=== PATIENT | female | born 1950 | race African-American/Black ===

== ENCOUNTER 2017-09-07 13:25 | Observation (INO) | payer MEDICARE, OTHER ==
[2017-09-07 14:25] LABS: #Basophils 0.1 thou/uL (0.0-0.2); #Eosinphils 0.2 thou/uL (0.0-0.7); #Lymphocytes 1.6 thou/uL (1.20-3.40); #Monocytes 0.3 thou/uL (0.11-0.59); #Neutrophils 2.8 thou/uL (1.40-6.50); %Basophils 1.2 % (0.0-1.0); %Eosinophils 4.3 % (0.0-10.0); %Lymphocytes 32.4 % (21.0-51.0); %Monocytes 6.5 % (0.0-10.0); Hematocrit 43.3 % (36.0-47.0); Red Blood Cell (RBC) Count 4.44 mill/uL (4.20-5.40)
[2017-09-07 14:45] LABS: Digoxin Less than 0.15 ng/mL (0.8-2.0)
[2017-09-07 14:46] LABS: ALT (SGPT) 21 U/L (8-55); AST (SGOT) 25 U/L (5-34); Alkaline Phosphatase 99 U/L (40-150); Anion Gap 11 mmol/L (10-20); BUN (Urea Nitrogen) 10 mg/dL (9.8-20.1); Bilirubin, Total 0.2 mg/dL (0.2-1.2); CK (CPK) 129 U/L (29-168); Calc. Creatinine Clearance 0 mL/min (70-130); Calcium 9.8 mg/dL (7.8-10.44); Carbon Dioxide 25 mmol/L (23-31); Chloride 107 mmol/L (98-107); Estimated GFR-MDRD 82; Lipase 25 U/L (8-78)
[2017-09-07] MEDS ORDERED: Acetaminophen 500 MG TAB ONE (14:48)
[2017-09-07] MEDS ORDERED: Nitroglycerin 2% Ointment 1 INCH/1 GM Packet ONE (14:48)
--- NOTE | 2017-09-07 14:51 | ULT ---
LEFT LOWER EXTREMITY VENOUS ULTRASOUND: COMPARISON: None. HISTORY: Left lower extremity pain and edema. TECHNIQUE: Multiplanar, gomez scale, and color Doppler images were obtained in a left lower extremity venous ultr asound. Spectral analysis of the Doppler waveforms was performed. FINDINGS: The left common femoral vein, profunda femoral vein, superficial femoral vein, and popliteal vein are normal in appearance without visible thrombus. These vessels demonstrate normal compression, flow, and augmentation. The posterior tibial vein and greater saphenous vein are also patent. IMPRESSION: No evidence of deep vein thrombosis. POS: [facility]
[2017-09-07 14:56] LABS: Troponin I Less than 0.010 ng/mL (< 0.028)
--- NOTE | 2017-09-07 15:19 | RAD ---
SINGLE VIEW OF THE CHEST: Comparison: 12-25-16 History: Chest pain radiating to the left arm. FINDINGS: Single view of the chest shows an enlarged but stable cardiomediastinal silhouette. The patient is st atus post sternotomy. There is no evidence of consolidation, mass, or pleural effusion. IMPRESSION: Cardiomegaly without evidence of acute cardiopulmonary disease. POS: [facility]
--- NOTE | 2017-09-07 16:36 | HP ---
PRIMARY CARE PHYSICIAN: Louie Lauren M.D. CHIEF COMPLAINT: Chest pain, shortness of breath. HISTORY OF PRESENT ILLNESS: Ms. Page is a very pleasant 67-year-old female with past medical histor y of diabetes, hypertension, dyslipidemia, coronary artery disease status post CABG in 2014 and stent ing in 08/2016, who presented to the emergency room with the above mentioned complaints. History is mainly obtained by the patient herself and electronic medical records have been reviewed. She was la admitted to our facility in December of this year after she sustained a left-sided weakness, CVA and received TPA. Her cardiac stenting was done in 08/2016 with a drug-eluting stent placement to the SV G to LAD graft. She was discharged on Plavix. Today, she came to the hospital with above-mentioned complaint. 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 She was walking to the lunch room when she started to have sudden onset of very sharp, severe c hest pain located in the substernal central area. She has been having some on and off mild flares of pain for the last few months, but this was very severe. She rates it as a 10/10 in intensity. It d id go down her left arm. It was associated with nausea, dizziness, and shortness of breath. It did improve with sitting down. The pain persisted and she was brought into the emergency room and receiv ed nitroglycerin. Initial workup was unremarkable with a normal EKG and normal cardiac enzymes. She received aspirin a nd nitroglycerin paste in the ER with improvement in her symptoms. She was otherwise hemodynamically stable upon presentation. She did also give history of some swelling and pain in her left leg only. She has noted this for the last week or so. She underwent a lower extremity Doppler ultrasound which was negative for DVT in t he left leg. She is now being admitted for further workup for chest pain with known history of coronary artery dis ease. PAST MEDICAL HISTORY: 1. Coronary artery disease status post CABG in 2013 and stenting in 2015. 2. CVA in 12/2016, status post TPA. 3. Diabetes mellitus, type 2, controlled. 4. Hyperlipidemia. 5. History of thyroid nodules. 6. Hypertension. 7. Dyslipidemia. PAST SURGICAL HISTORY: 1. CABG in 2013 and stenting in 08/2016. 2. Appendectomy. 3. Hysterectomy. PAST PSYCHIATRIC HISTORY: No anxiety or depression. CODE STATUS: Full code. SOCIAL HISTORY: She teaches in a school. No history of drug, tobacco or alcohol abuse. FAMILY HISTORY: Massive heart attack in her mother at the age of 46. Hypertension in multiple famil y members. ALLERGIES: No known medication allergies. CURRENT MEDICATIONS: The patient does not remember any of her medications today. She does take an a spirin on a daily basis, but does not remember any of the medication. She however reports compliance . PHYSICAL EXAMINATION: VITAL SIGNS: Upon presentation, blood pressure 143/87, pulse of 83, respirations 16, temperature 98, saturating 97% on room air. GENERAL: No acute distress, awake, alert, oriented x3, very pleasant. HEENT: Mucous membrane is moist and pink. No oropharyngeal exudate or erythema. Head is normocepha lic, atraumatic. Pupils equal, reactive to light and accommodation. NECK: Supple without any lymphadenopathy, JVD or bruit. CHEST: Clear to auscultation without any wheezing, rales or rhonchi. CARDIOVASCULAR: Rhythm is regular without any murmur, rubs or gallops. ABDOMEN: Soft, nontender, and nondistended with positive bowel sounds. EXTREMITIES: Free of any cyanosis, clubbing, or edema. NEUROLOGIC: Nonfocal. SKIN: Free of any rashes or bruises. Feels warm and dry to touch. PSYCHIATRIC: Normal affect. LABORATORY DATA: A 12-lead EKG by my review shows normal sinus rhythm at [address] se gments are normal. She does have some inverted T-waves and flattened T waves in the inferior leads. Chest x-ray by my review has no infiltrate or pneumothorax or pulmonary edema. She does have eviden ce of cardiomegaly. Lower extremity Doppler Ultrasound is negative for any DVT. CBC is unremarkable. Serum chemistry unremarkable. Cardiac enzymes normal. BNP 21. Digoxin level less than 0.15. IMPRESSION AND PLAN: 1. Chest pain. The patient has history of known coronary artery disease. At this time, we will res tart her home medications once confined and obtain a nuclear medicine stress test. At this time I will go ahead and obtain a nuclear medicine stress test and we will notify Dr. Saini of the patient's presentation. We will continue to trend serial cardiac enzymes and use sublingual n itroglycerin as needed. Continue with aspirin and recheck lipid panel. She will be admitted on tele metry unit. She is currently hemodynamically stable. Continue with her proton pump inhibition that she takes as an outpatient to rule out gastric causes of her chest pain. Possibility of pulmonary em bolism is clinically low. 2. Hypertension. The patient is somewhat hypertensive in the emergency room. At this time, I will add p.r.n. antihypertensive and reconcile the home medications and restart as soon as possible. 3. Diabetes mellitus type 2. We will add insulin sliding scale and monitor Accu-Cheks closely. 4. Dyslipidemia. Restart home medications once confirmed and check lipid panel. 5. Recent cerebrovascular accident. The patient was discharged on aspirin and Plavix and we most justin watson will be able to restart once confirmed through her pharmacy. 6. Group status: Full code. Discussed with the patient. 7. Deep venous thrombosis and gastrointestinal prophylaxis. DISPOSITION: The patient is coming in for chest pain with known history of coronary artery disease. She will be admitted for further evaluation under observation status. Further management will depen d upon her clinical course.
[2017-09-07] MEDS ORDERED: cloNIDine 0.1 MG TAB PO PRN (16:58)
[2017-09-07] MEDS ORDERED: Lorazepam 1 MG TAB PO PRN (16:58)
[2017-09-07] MEDS ORDERED: Diabetic Tussin 200 MG/10 ML UDCUP PO PRN (16:58)
[2017-09-07] MEDS ORDERED: Senokot 8.6 MG TAB PO PRN (16:58)
[2017-09-07] MEDS ORDERED: Loratadine 10 MG TAB PO PRN (16:58)
[2017-09-07] MEDS ORDERED: Ondansetron HCl/PF 4 MG/2 ML Vial IVP PRN (16:58)
[2017-09-07] MEDS ORDERED: HumaLOG 300 UNITS/3 ML VIAL SC PRN ×2 (16:58)
[2017-09-07] MEDS ORDERED: Mag-Al 1200 mg/1200 mg/30 ML UDCUP PO PRN (16:58)
[2017-09-07] MEDS ORDERED: traMADol HCl 50 MG TAB PO PRN (16:58)
[2017-09-07] MEDS ORDERED: Bisacodyl 5 MG TAB PO PRN (16:58)
[2017-09-07] MEDS ORDERED: Acetaminophen 325 MG TAB PO PRN (16:58)
[2017-09-07] MEDS ORDERED: Benzonatate 100 MG CAP PO PRN (16:58)
[2017-09-07] MEDS ORDERED: Dextrose 5% in Water 1,000 ML IV PRN (16:58)
[2017-09-07] MEDS ORDERED: Nitroglycerin 0.4 MG TAB (25 Tab Bottle) SL PRN (16:58)
[2017-09-07] MEDS ORDERED: Dextrose 50% Abboject 50 ML SYRINGE SLOW IVP PRN (16:58)
[2017-09-07] MEDS ORDERED: Calcium Carbonate 500 MG ChewTAB PO PRN (16:58)
[2017-09-07] MEDS ORDERED: hydrALAZINE 20 MG/ML VIAL SLOW IVP PRN (16:58)
[2017-09-07 17:24] VITALS: BMI 35.6
[2017-09-07 18:27] LABS: Troponin I Less than 0.010 ng/mL (< 0.028)
[2017-09-07] MEDS: Famotidine 20 MG TAB PO SCH (20:09)
[2017-09-07] MEDS ORDERED: Communication Order-Pharmacy FS SCH (20:30)
[2017-09-07] MEDS ORDERED: Diazepam 5 MG TAB PO SCH ×2 (20:30→21:30)
[2017-09-07 21:03] LABS: Troponin I 0.014 ng/mL (< 0.028)
--- NOTE | 2017-09-07 22:58 | CON ---
DATE OF CONSULTATION: 09/07/2017 REASON FOR CONSULTATION: Unstable angina. HISTORY OF PRESENT ILLNESS: Ms. Rothman is a pleasant 67-year-old woman. She has a history of coron jaz artery disease and coronary bypass grafting done in 2013. The patient presented with unstable an regina in 08/2016 and was found to have a severe stenosis in the LAD graft. The internal mammary arter y graft was a free graft which was atretic, which were very small ramus branch. There was a distal c ircumflex, which did not have a graft. The patient underwent successful stent implantation in the LA D. The patient has noted increasing amounts of shortness of breath for the last few months and had recur rent chest pain at rest, prompting this admission she came to the emergency room and has been admitte d for evaluation. She has EKG changes in the anterior leads with T-wave inversions in anterior leads . MEDICATIONS AT HOME: 1. Aspirin. 2. Clopidogrel. 3. Coreg 3.125 mg twice daily. 4. Amlodipine 5 mg a day. 5. Atorvastatin. 6. Dexilant. ALLERGIES: None known. REVIEW OF SYSTEMS: Constitutional: No significant weight gain or loss. Vision: No changes. Heari ng: No changes. Pulmonary: No cough or wheezing. Gastrointestinal: No nausea, vomiting, diarrhea . Skin: No rashes. Neurologic: No unilateral weakness or numbness. Psychiatric: No unusual depr ession or anxiety. PHYSICAL EXAMINATION: GENERAL: This is a pleasant elderly woman in no distress. VITAL SIGNS: Blood pressure 115/67, pulse 88, regular. HEENT: Eyes, sclerae nonicteric. Mouth; mucous membranes moist. NECK: Supple, no lymphadenopathy. LUNGS: Clear. CARDIAC: Normal S1, normal S2. There is no murmur, rub or gallop. ABDOMEN: Soft, nontender. EXTREMITIES: No clubbing, no cyanosis. There is no edema. PSYCHIATRIC: Mood and affect normal. NEUROLOGIC: Grossly normal. SKIN: Warm and dry. PERTINENT LABORATORY AND X-RAY FINDINGS: Troponin levels are negative. The EKG; however, does show T-wave inversion in the anterior leads V2, V3, V4, and V5. ASSESSMENT: 1. Unstable angina. 2. Previous bypass surgery. 3. Previous stent implantation in the LAD, saphenous vein graft. PLAN: Proceed to cardiac catheterization tomorrow. I discussed risks of stroke, heart attack, iodin e allergy, loss of blood supply to the leg or kidney, stent thrombosis, stent restenosis. She unders tands and wishes to proceed.
[2017-09-08 05:19] LABS: #Eosinphils 0.1 thou/uL (0.0-0.7); #Lymphocytes 1.9 thou/uL (1.20-3.40); #Monocytes 0.5 thou/uL (0.11-0.59); #Neutrophils 1.8 thou/uL (1.40-6.50); %Basophils 0.6 % (0.0-1.0); %Eosinophils 3.3 % (0.0-10.0); %Lymphocytes 43.9 % (21.0-51.0); %Monocytes 10.8 % (0.0-10.0); Hematocrit 42.1 % (36.0-47.0); Mean Platelet Volume 9.2 fL (7.4-10.4); Red Blood Cell (RBC) Count 4.32 mill/uL (4.20-5.40); White Blood Cell (WBC) Count 4.3 thou/uL (4.8-10.8)
[2017-09-08 05:27] LABS: Anion Gap 11 mmol/L (10-20); BUN (Urea Nitrogen) 9 mg/dL (9.8-20.1); Calc. Creatinine Clearance 88 mL/min (70-130); Calcium 9.3 mg/dL (7.8-10.44); Carbon Dioxide 26 mmol/L (23-31); Chloride 107 mmol/L (98-107); Estimated GFR-MDRD Greater than 90
[2017-09-08] MEDS ORDERED: Sodium Chloride 0.9% 1,000 ML IV SCH (06:00)
[2017-09-08] MEDS ORDERED: Heparin 1000 UNIT/NS 500ML(OR) 500 ML ONE ×2 (06:35→08:13)
[2017-09-08] MEDS: Famotidine 20 MG TAB PO SCH ×2 (06:39→20:10)
[2017-09-08] MEDS: Carvedilol 3.125 MG TAB PO SCH ×2 (06:40→20:10)
[2017-09-08] MEDS: Sodium Chloride 0.9% 1,000 ML IV SCH ×2 (06:40→17:28)
[2017-09-08] MEDS: Aspirin 325 mg Enteric Coated Tablet PO SCH (06:40)
[2017-09-08] MEDS ORDERED: Midazolam HCl 2 mg/2 ml Vial ONE (07:30)
[2017-09-08] MEDS ORDERED: Fentanyl 100 MCG/2 ML VIAL ONE ×3 (07:30→13:40)
[2017-09-08] MEDS ORDERED: Heparin 10,000 UNITS/1 ML VIAL ONE (07:47)
[2017-09-08] MEDS ORDERED: Nitroglycerin 100MG/250ML BOT 250 ML ONE (08:23)
[2017-09-08] MEDS ORDERED: Adenosine 6 MG/2 ML VIAL ONE (08:28)
[2017-09-08] MEDS ORDERED: Clopidogrel Bisulfate 75 MG TAB PO SCH (09:00)
[2017-09-08] MEDS ORDERED: Enoxaparin Sodium 40 MG/0.4 ML SYRINGE SC SCH (09:00)
[2017-09-08] MEDS ORDERED: Nitroglycerin 0.4 MG TAB 1 EACH SL PRN (09:05)
[2017-09-08] MEDS ORDERED: Clopidogrel Bisulfate 300 MG TAB PO SCH (09:15)
[2017-09-08] MEDS ORDERED: Clopidogrel Bisulfate 300 MG TAB ONE (09:29)
[2017-09-08] MEDS ORDERED: Iopamidol 370 76% 100 ML VIAL ONE (14:50)
[2017-09-08] MEDS ORDERED: Iopamidol 370 76% 50 ML VIAL FS ONE (14:50)
--- NOTE | 2017-09-08 14:58 | PDOC.PN ---
- Subjective Encounter Start Date: 09/08/17 Encounter Start Time: 14:56 Patient seen and examined. No new complaints. No overnight events. feels better after the stents. - Objective MAR Reviewed: Yes Vital Signs & Weight: Vital Signs (12 hours) Temp Pulse Resp BP Pulse Ox 09/08/17 07:58 97.5 F L 62 16 09/08/17 04:00 97.5 F L 62 16 133/84 96 Weight Weight 176 lb 3.2 oz I&O: 09/07/17 09/08/17 09/09/17 06:59 06:59 06:59 Intake Total 1120 Output Total 1600 Balance -480 Result Diagrams: 09/08/17 04:00 09/08/17 04:00 Additional Labs: Accuchecks 09/07/17 09/07/17 20:34 18:55 POC Glucose 168 H 141 H Phys Exam - Physical Examination Constitutional: NAD HEENT: sclera anicteric Neck: supple Respiratory: no wheezing, no rales Cardiovascular: RRR Gastrointestinal: soft Musculoskeletal: no edema Neurological: non-focal, moves all 4 limbs Psychiatric: normal affect, A&O x 3 Skin: no rash Dx/Plan (1) CAD (coronary artery disease) Code(s): I25.10 - ATHSCL HEART DISEASE OF [place] CORONARY ARTERY W/O ANG PCTRS Status: Acute (2) Diabetes Code(s): E11.9 - TYPE 2 DIABETES MELLITUS WITHOUT COMPLICATIONS Status: Acute (3) HLD (hyperlipidemia) Code(s): E78.5 - HYPERLIPIDEMIA, UNSPECIFIED Status: Acute - Plan cont current plan of care, plan discussed w/ family * . CAD with in-stent restenosis s/p JUVENCIO. AM labs. f/u with cardiology for DC plans.
--- NOTE | 2017-09-08 17:19 | PRG ---
DATE OF SERVICE: 09/08/2017 Ms. Rothman is doing well. She underwent cardiac catheterization today. She was found to have sever e in-stent restenosis at the saphenous vein graft to the LAD stent. She underwent successful stent i mplantation, a 4.0 x 16 mm stent was placed. The patient did have a transient reduced flow, responde d to adenosine. There is a critical lesion prior to the dilatation, may have been some thrombus in t his area. The patient is doing well now and the plan is to go home tomorrow on aspirin and Plavix. All the oth er medicines on as well.
[2017-09-09 05:47] LABS: #Eosinphils 0.2 thou/uL (0.0-0.7); #Lymphocytes 1.2 thou/uL (1.20-3.40); #Monocytes 0.4 thou/uL (0.11-0.59); #Neutrophils 2.4 thou/uL (1.40-6.50); %Basophils 0.9 % (0.0-1.0); %Eosinophils 4.8 % (0.0-10.0); %Lymphocytes 28.3 % (21.0-51.0); %Monocytes 9.7 % (0.0-10.0); Hematocrit 45.3 % (36.0-47.0); Mean Platelet Volume 9.2 fL (7.4-10.4); Red Blood Cell (RBC) Count 4.62 mill/uL (4.20-5.40); White Blood Cell (WBC) Count 4.2 thou/uL (4.8-10.8)
[2017-09-09 06:07] LABS: ALT (SGPT) 17 U/L (8-55); AST (SGOT) 23 U/L (5-34); Alkaline Phosphatase 96 U/L (40-150); Anion Gap 9 mmol/L (10-20); BUN (Urea Nitrogen) 8 mg/dL (9.8-20.1); Bilirubin, Total 0.4 mg/dL (0.2-1.2); Calc. Creatinine Clearance 89 mL/min (70-130); Calcium 9.8 mg/dL (7.8-10.44); Carbon Dioxide 29 mmol/L (23-31); Chloride 106 mmol/L (98-107); Estimated GFR-MDRD Greater than 90; Protein, Total 6.8 g/dL (6.0-8.3)
[2017-09-09] MEDS: Aspirin 325 mg Enteric Coated Tablet PO SCH (08:52)
[2017-09-09] MEDS: Famotidine 20 MG TAB PO SCH (08:52)
[2017-09-09] MEDS: Carvedilol 3.125 MG TAB PO SCH (08:52)
[2017-09-09] MEDS ORDERED: Lisinopril 20 MG TAB PO SCH (09:00)
[2017-09-09] MEDS ORDERED: Clopidogrel Bisulfate 75 MG TAB PO SCH (09:00)
[2017-09-09] MEDS ORDERED: Amlodipine 5 MG TAB PO SCH (09:00)
--- NOTE | 2017-09-09 11:42 | PDOC.PN ---
- Subjective Encounter Start Date: 09/09/17 Encounter Start Time: 11:41 Ms. Rothman was seen today in follow-up of unstable angina. She says she is feeling fine today. She notes a little shortness of breath. She denies chest pain. - Objective MAR Reviewed: Yes Vital Signs & Weight: Vital Signs (12 hours) Temp Pulse Resp BP BP Pulse Ox 09/09/17 08:00 98.4 F 71 16 09/09/17 07:10 98.4 F 71 16 131/87 96 09/09/17 04:11 97.8 F 65 16 133/81 96 09/09/17 00:00 98.1 F 76 16 128/82 97 Weight Weight 176 lb 3.2 oz I&O: 09/08/17 09/09/17 09/10/17 06:59 06:59 06:59 Intake Total 1120 2330 Output Total 1600 1000 Balance -480 1330 Result Diagrams: 09/09/17 05:11 09/09/17 05:11 Additional Labs: Accuchecks 09/09/17 09/09/17 09/08/17 11:19 05:37 20:11 POC Glucose 98 125 H 89 09/08/17 17:04 POC Glucose 140 H Phys Exam - Physical Examination HEENT: PERRLA Respiratory: no wheezing, no rales, no rhonchi, clear to auscultation bilateral Cardiovascular: RRR, no significant murmur Gastrointestinal: soft, non-tender, positive bowel sounds Musculoskeletal: no edema Dx/Plan (1) Unstable angina Status: Acute (2) CAD (coronary artery disease) Code(s): I25.10 - ATHSCL HEART DISEASE OF [place] CORONARY ARTERY W/O ANG PCTRS Status: Acute (3) Diabetes Code(s): E11.9 - TYPE 2 DIABETES MELLITUS WITHOUT COMPLICATIONS Status: Chronic (4) HLD (hyperlipidemia) Code(s): E78.5 - HYPERLIPIDEMIA, UNSPECIFIED Status: Chronic (5) Hypertension Code(s): I10 - ESSENTIAL (PRIMARY) HYPERTENSION Status: Chronic - Plan * Unstable Angina- she was found to have an In-stent stenosis of theSavenous vein graft to the LAD * She has had another STENT placed * HTN- blood pressure is stable * Can discharge home today.
[2017-09-09 12:13] VITALS: BP 144/86; TEMP 98.8
--- NOTE | 2017-09-09 16:12 | DIS ---
DATE OF ADMISSION: 09/07/2017 DATE OF DISCHARGE: 09/09/2017 PRIMARY CARE PHYSICIAN: Louie Lauren M.D. DISCHARGE DISPOSITION: Home. PRIMARY DISCHARGE DIAGNOSES: 1. Unstable angina. 2. Coronary artery disease. 3. In-stent restenosis. 4. Hypertension. 5. Diabetes mellitus. DISCHARGE MEDICATIONS: Include aspirin 325 mg daily, Plavix 75 mg daily, amlodipine 5 mg daily, albu terol inhaler 2 puffs q.6 as needed, calcium carbonate plus vitamin D 1 tablet daily, carvedilol 3.12 5 mg twice daily, Flexeril 10 mg t.i.d. as needed, Dexilant 60 mg daily, lisinopril 40 mg daily, Metf ormin extended release 500 mg daily, Zoloft 50 mg daily. CODE STATUS: Full code. ALLERGIES: No known drug allergies. PROCEDURES DONE DURING ADMISSION: The patient had a cardiac catheterization in which it was noted th at the patient had a severe in-stent restenosis of the saphenous vein graft to the LAD. The patient had successful PCI of the LAD and a stent deployed. The patient had an uneventful post-procedure cou rse and at the time of discharge, she was symptom free and was able to be discharged home with close outpatient followup.
--- NOTE | 2017-09-23 13:28 | EKG ---
Test Reason : POST STENT Blood Pressure : / mmHG Vent. Rate : 067 BPM Atrial Rate : 067 BPM P-R Int : 180 ms QRS Dur : 080 ms QT Int : 396 ms P-R-T Axes : 068 022 059 degrees QTc Int : 418 ms Normal sinus rhythm T wave abnormality, consider anterior ischemia Abnormal ECG When compared with ECG of 07-SEP-2017 13:39, (Unconfirmed) No significant change was found Confirmed by LUCI BANDA MD ([id number]) on 09/23/2017 1:28:05 PM Referred By: HARI Confirmed By:LUCI BANDA MD
--- NOTE | 2017-09-23 13:32 | EKG ---
Test Reason : ROUTINE Blood Pressure : / mmHG Vent. Rate : 066 BPM Atrial Rate : 066 BPM P-R Int : 184 ms QRS Dur : 076 ms QT Int : 402 ms P-R-T Axes : 018 -04 026 degrees QTc Int : 421 ms Normal sinus rhythm T wave abnormality, consider anterior ischemia Abnormal ECG When compared with ECG of 08-SEP-2017 09:52, (Unconfirmed) No significant change was found Confirmed by LUCI BANDA MD ([id number]) on 09/23/2017 1:32:36 PM Referred By: Confirmed By:LUCI BANDA MD
== END 2017-09-09 12:38 | disposition home or self-care (01) ==
LOC: ERS 13:25 → 2SW 15:15
PROVIDERS: ADMIT Internal Medicine; ATTEND Internal Medicine
DX: I25.110 Atherosclerotic heart disease of native coronary artery with unstable angina pectoris (principal); I10 Essential (primary) hypertension; E11.9 Type 2 diabetes mellitus without complications; Z79.899 Other long term (current) drug therapy; Z95.1 Presence of aortocoronary bypass graft; Z95.5 Presence of coronary angioplasty implant and graft; Z98.890 Other specified postprocedural states
CPT/HCPCS: 71010; 76942; 80048; 80053 ×2; 80162; 82550; 82553; 82962 ×3; 83690; 83880; 84484 ×2; 85025 ×3; 85347 ×3; 93005 ×3; 93455; 93971; 94760; 99285; C1769 ×2; C1874; C1887; C9600; G0378; 36415; 36416; 92928; 93010; 99152; 99153; A4216; J0153; J1644; J2250; J3010

== ENCOUNTER 2017-09-25 18:59 | Observation (INO) | payer MEDICARE ==
[2017-09-25] MEDS ORDERED: Nitroglycerin 2% Ointment 1 INCH/1 GM Packet ONE (20:04)
[2017-09-25] MEDS ORDERED: Acetaminophen 325 MG TAB ONE (20:04)
[2017-09-25 20:11] LABS: #Eosinphils 0.2 thou/uL (0.0-0.7); #Lymphocytes 1.9 thou/uL (1.20-3.40); #Monocytes 0.6 thou/uL (0.11-0.59); %Basophils 0.7 % (0.0-1.0); %Monocytes 10.5 % (0.0-10.0); %Neutrophils 52.9 % (42.0-75.0); Hemoglobin 13.6 g/dL (12.0-16.0); Mean Corpuscular HGB CONC 32.5 g/dL (32.0-36.0); Mean Corpuscular Hemoglobin 31.6 pg (27.0-31.0); Mean Corpuscular Volume 97.1 fl (81.0-99.0); Mean Platelet Volume 9.5 fL (7.4-10.4); Platelet Count 265 thou/uL (130-400); RBC Distribution Width 12.8 % (11.5-14.5); Red Blood Cell (RBC) Count 4.31 mill/uL (4.20-5.40); White Blood Cell (WBC) Count 5.7 thou/uL (4.8-10.8)
[2017-09-25 20:28] LABS: ALT (SGPT) 28 U/L (8-55); AST (SGOT) 34 U/L (5-34); Alkaline Phosphatase 107 U/L (40-150); Anion Gap 16 mmol/L (10-20); BUN (Urea Nitrogen) 10 mg/dL (9.8-20.1); Bilirubin, Total 0.3 mg/dL (0.2-1.2); CK (CPK) 109 U/L (29-168); Calc. Creatinine Clearance 0 mL/min (70-130); Carbon Dioxide 23 mmol/L (23-31); Chloride 108 mmol/L (98-107); Estimated GFR-MDRD 85; Glucose 89 mg/dL (80-115); Potassium 4.5 mmol/L (3.5-5.1); Sodium 142 mmol/L (136-145)
[2017-09-25 20:32] LABS: CKMB 2.8 ng/mL (0-6.6); Troponin I Less than 0.010 ng/mL (< 0.028)
--- NOTE | 2017-09-25 20:34 | RAD ---
AP CHEST: Indication: Chest pain. IMPRESSION: No acute cardiopulmonary abnormality. This examination is not appreciably changes from comparison of 08-28-17. Heart size remains mildly prominent but stable. POS: [facility]
--- NOTE | 2017-09-25 21:08 | ULT ---
DOPPLER VENOUS ULTRASOUND OF THE LEFT LOWER EXTREMITY: Indication: Left lower extremity pain and edema. TECHNIQUE: Gupta scale, color Doppler, and vascular duplex with spectral analysis was performed of the deep venou s structures of the left lower extremity. The common femoral vein, superficial femoral vein, poplitea l vein, posterior tibial vein, proximal greater saphenous, and proximal profunda veins were assessed. FINDINGS: There is normal compression, flow, and augmentation seen within the deep venous systems of the left l ower extremity. IMPRESSION: No evidence of DVT within the left lower extremity. POS: [facility]
[2017-09-25] MEDS ORDERED: Dextrose 5% in Water 1,000 ML IV PRN ×2 (22:17→22:19)
[2017-09-25] MEDS ORDERED: Ondansetron ODT 4 MG TAB PO PRN (22:17)
[2017-09-25] MEDS ORDERED: HYDROcodone/Acetaminophen 5/325 mg Tablet PO PRN (22:17)
[2017-09-25] MEDS ORDERED: Dextrose 50% Abboject 50 ML SYRINGE SLOW IVP PRN ×2 (22:17→22:19)
[2017-09-25] MEDS ORDERED: Acetaminophen 325 MG TAB PO PRN (22:17)
[2017-09-25] MEDS ORDERED: Ondansetron HCl/PF 4 MG/2 ML Vial IVP PRN (22:17)
[2017-09-25] MEDS ORDERED: HumaLOG 300 UNITS/3 ML VIAL SC PRN (22:19)
[2017-09-25] MEDS ORDERED: Cyclobenzaprine 10 MG TAB PO PRN (22:20)
[2017-09-25] MEDS ORDERED: PROVENTIL INHALER 6.7 G (200 INHALATIONS) INH PRN (22:20)
[2017-09-25] MEDS ORDERED: Enoxaparin Sodium 100 MG/ML SYRINGE SC SCH (22:30)
[2017-09-25] MEDS ORDERED: Sodium Chloride 0.9% 1,000 ML IV SCH (22:30)
[2017-09-25] MEDS ORDERED: Carvedilol 3.125 MG TAB PO SCH (22:30)
[2017-09-25] MEDS ORDERED: Enoxaparin Sodium 80 MG/0.8 ML SYRINGE SC SCH (22:30)
[2017-09-25 23:51] LABS: CKMB 2.8 ng/mL (0-6.6); Troponin I Less than 0.010 ng/mL (< 0.028)
[2017-09-25 23:53] LABS: Troponin I Less than 0.010 ng/mL (< 0.028)
[2017-09-26] MEDS: HYDROcodone/Acetaminophen 10/325 mg Tablet PO PRN ×2 (00:36→09:51)
--- NOTE | 2017-09-26 00:57 | HP ---
DATE OF ADMISSION: 09/25/2017 TIME OF SERVICE: 2145 hours. PRIMARY CARE PHYSICIAN: Louie Lauren M.D. PRIMARY SURGICAL INSTRUMENT MAKER: Dr. Saini. CHIEF COMPLAINT: Chest pain. HISTORY OF PRESENT ILLNESS: Ms. Rothman is a 67-year-old -Turkish female known to us from re cent stay here. She was here from 09/07/2017 to 09/09/2017, when she presented with chest pain. She describes the pain then and now to be exactly the same as a sharp stabbing pain into the left side o f her sternum. Not related to activity. That radiated down her left arm and down to her left leg. She was admitted here during that time and Cardiology was consulted. Dr. Saini is a licensed architect an d saw her. He took her to the cardiac cath lab manager and found that she had her saphenous vein to LAD graft stent that was placed in 08/2016 to be occluded and had to have a new stent placed. She felt better after that went home. She did well until today, where she had recurrence of her chest pain just like it was last time. Pre sented to the emergency department. Workup here has been negative. We were called from admission for observation and further workup and evaluation. She does complain of some intermittent dizziness. She has had no fevers or chills. She has nausea w ithout vomiting during the chest pain episode. No diarrhea or constipation. She had no diaphoresis or sweats. She does have a headache in the posterior aspect of her neck going up to the occiput. This started b efore the chest pain. She has a frontal headache now with the nitroglycerin, but the posterior heada royal is still continues. No other current complaints. PAST MEDICAL HISTORY: 1. Coronary artery disease. 2. Hypertension. 3. Hyperlipidemia. 4. Cerebrovascular disease with a stroke back in December 2016. 5. Diabetes mellitus type 2, non-insulin dependent. 6. Thyroid nodules. PAST SURGICAL HISTORY: Include; 1. Coronary artery bypass grafting in 2013 and now she had she had a saphenous vein graft to the LAD . She had a PTCA in 08/2016, they accessed vein graft to LAD to be stenosed and had a stent placed. She had another PTCA with PCI in 08/2017, 2-1/2 weeks ago that found in-stent restenosis there. 2. Appendectomy, hysterectomy, remotely. 3. TPA given in 12/2016 for her stroke. HOME MEDICATIONS: 1. Metformin 500 mg q.a.m. 2. Zoloft 50 mg p.o. daily. 3. Lisinopril 40 mg daily. 4. Dexilant 60 mg daily. 5. Flexeril 10 mg p.o. t.i.d. p.r.n. muscle spasm. 6. Plavix 75 mg a day, restarted back in 08/2017. 7. Coreg 3.125 mg p.o. b.i.d. 8. Calcium plus D 500 mg daily. 9. Lipitor 20 mg p.o. at bedtime. 10. Aspirin 325 mg daily. 11. Norvasc 5 mg daily. 12. Albuterol MDI 2 puffs every 4 hours as needed for shortness of breath. ALLERGIES: NKDA. FAMILY HISTORY: Significant for mother who with an UT at age 46. Blood pressure in several mem bers. SOCIAL HISTORY: Negative for habits x3. She is . accompanies her. REVIEW OF SYSTEMS: A 10-point review of systems was performed, negative for all other systems except stated as per HPI. PHYSICAL EXAMINATION: VITAL SIGNS: Temperature 97.7, pulse 77, blood pressure 149/82, respiratory rate 20, satting 97% on room air. GENERAL: She is awake. She is alert. She is oriented x3. She is a well-developed, well-nourished, obese white female appears to be in no acute distress. HEENT: Normocephalic and atraumatic. Pupils are equal, reactive to light bilaterally, mucous membra mary ann with moist. She had no visible lesions. No thrush. NECK: Supple, without lymphadenopathy, no JVD, no thyromegaly. She has normal carotid upstroke. I do not appreciate bruits. LUNGS: Clear to auscultation bilaterally. She has no wheezes, no rales, no rhonchi. No prolonged e xpiratory phase. She has good air movement with symmetrical chest excursion. CARDIOVASCULAR: She has a normal S1, S2. No S3 or S4. No audible murmurs. ABDOMEN: Obese and is nontender, nondistended. She has no organomegaly. There is no rebound, rigid ity, or guarding. EXTREMITIES: Show no cyanosis or clubbing. She has no edema. She has 1+ peripheral pulse in the do rsalis pedis, posterior tibial arteries. She has 2+ bilateral radial artery pulses. SKIN: Warm, moist, and well perfused. She has no rashes, no lesions. MUSCULOSKELETAL: Normal to inspection without any inflammation or palpable effusions. NEUROLOGIC: Cranial nerves II-XII are grossly intact. She has normal speech pattern, 5/5 strength i n all 4 extremities, and normal sensation. She has no focal deficits. LABORATORY DATA: Sodium 142, potassium 4.5, chloride 108, bicarb 23, BUN 10, creatinine 0.81 and glu cose of 89. Calcium is 10.0. Liver functions were completely normal. CBC showed white count of 5.7 , hemoglobin 13.6, hematocrit 41.8, and platelet count 265, 000. BNP was 14.5. CK total was 109, CK-MB 2.8 and troponin I was undetectable less than 0.10. Compared to her prior visit in 09/07/2017, her troponin was slightly detectable at 0.014 initially. A chest x-ray showed no acute cardiopulmonary disease. Ultrasound of left lower extremity showed no evidence of DVT. ASSESSMENT AND PLAN: 1. Chest pain. Patient has significant coronary artery disease history and this is a troubling stor y just like her last visit when she had in-stent restenosis. We will start her on Lovenox. We will get serial cardiac biomarkers. We will place in observation and watch her on telemetry. I have [facility], Dr. Saini, specifically to evaluate her in the morning. 2. Hypertension. Continue home medications. We will give her another dose of Coreg as she has miss ed her 9 p.m. dose, I will also start on nitro paste of 11 inch to chest wall q. 8 hours. 3. Hyperlipidemia, on Lipitor. We will continue. 4. Cerebrovascular disease/CVA. 5. Diabetes mellitus type 2. We will use sliding scale insulin. We will put her metformin on hold at present. 6. History of thyroid nodules. 7. Headache. Flexeril has been continued. She has PRNS ordered for her discomfort.
[2017-09-26 02:22] LABS: #Basophils 0.1 thou/uL (0.0-0.2); #Eosinphils 0.2 thou/uL (0.0-0.7); #Lymphocytes 1.9 thou/uL (1.20-3.40); #Monocytes 0.5 thou/uL (0.11-0.59); #Neutrophils 2.2 thou/uL (1.40-6.50); %Basophils 1.7 % (0.0-1.0); %Eosinophils 3.7 % (0.0-10.0); %Lymphocytes 39.6 % (21.0-51.0); %Monocytes 9.7 % (0.0-10.0); %Neutrophils 45.3 % (42.0-75.0); Hemoglobin 13.6 g/dL (12.0-16.0); Mean Corpuscular HGB CONC 33.2 g/dL (32.0-36.0); Mean Corpuscular Hemoglobin 32.6 pg (27.0-31.0); Mean Corpuscular Volume 97.9 fl (81.0-99.0); Mean Platelet Volume 8.9 fL (7.4-10.4); Platelet Count 250 thou/uL (130-400); RBC Distribution Width 12.7 % (11.5-14.5); Red Blood Cell (RBC) Count 4.16 mill/uL (4.20-5.40); White Blood Cell (WBC) Count 4.9 thou/uL (4.8-10.8)
[2017-09-26 02:46] LABS: Troponin I Less than 0.010 ng/mL (< 0.028)
[2017-09-26 02:50] LABS: Anion Gap 10 mmol/L (10-20); BUN (Urea Nitrogen) 10 mg/dL (9.8-20.1); Calc. Creatinine Clearance 0 mL/min (70-130); Calcium 9.8 mg/dL (7.8-10.44); Carbon Dioxide 30 mmol/L (23-31); Cardiac Risk 3.6 (Less than 4.5); Chloride 108 mmol/L (98-107); Cholesterol 98 mg/dl (< 200 Desired); Estimated GFR-MDRD 85; Glucose 161 mg/dL (80-115); HDL Cholesterol 27 mg/dL (>60 Neg Risk); LDL Cholesterol, Calculated 50 mg/dL; Magnesium 1.8 mg/dL (1.6-2.6); Sodium 144 mmol/L (136-145); Triglycerides 104 mg/dL (Less than 150)
[2017-09-26 03:04] VITALS: BMI 35.4
[2017-09-26] MEDS: Nitroglycerin 2% Ointment 1 INCH/1 GM Packet TOP SCH ×2 (05:52→13:16)
[2017-09-26 07:41] LABS: CKMB 2.2 ng/mL (0-6.6); Troponin I Less than 0.010 ng/mL (< 0.028)
[2017-09-26] MEDS ORDERED: Enoxaparin Sodium 80 MG/0.8 ML SYRINGE SC SCH (09:00)
[2017-09-26] MEDS ORDERED: Lisinopril 20 MG TAB PO SCH (09:00)
[2017-09-26] MEDS ORDERED: Famotidine 20 MG TAB PO SCH (09:00)
[2017-09-26] MEDS ORDERED: Carvedilol 3.125 MG TAB PO SCH (09:00)
[2017-09-26] MEDS ORDERED: Aspirin 325 MG TAB PO SCH (09:00)
[2017-09-26] MEDS ORDERED: Non-Formulary Item 1 EACH (Dexlansoprazole [Dexilant] 60 MG) PO SCH (09:00)
[2017-09-26] MEDS ORDERED: Clopidogrel Bisulfate 75 MG TAB PO SCH (09:00)
[2017-09-26] MEDS ORDERED: Amlodipine 10 MG TAB PO SCH (09:00)
[2017-09-26 12:58] VITALS: BP 122/78; TEMP 97.2
--- NOTE | 2017-09-26 14:30 | CON ---
DATE OF CONSULTATION: 09/26/2017. REASON FOR CONSULTATION: Chest pain. PRIMARY BREAD AND PASTRY BAKER: Dr. Maryann Saini. HISTORY OF PRESENT ILLNESS: Ms. Rothman is a very pleasant 67-year-old female who c omes to the hospital for chest pain. She was admitted from the to 09 of September just a coupl e of weeks ago for symptoms concerning for unstable angina. She was taken to the catheterization lab by Dr. Saini and was found to have in-stent restenosis of stent to her LAD into the vein graft, so this was restented with good results. Ms. Rothman tells me that she did not have much improvement in her symptoms. She continued to feel little episodes of chest pain. She describes as a stabbing brandie n in her mid sternal area would just last a few seconds. She tells me that when her pain goes on her left chest, she feels it goes all the way down to the left leg as well. She also noted pain in her left leg when she walks and gets pain in her left leg feels like somebody is stabbing a needle on her calves and then it feels better when she rests. Sometimes it does not feel better when she rests. She had an ultrasound of her leg on the venous side and she did not have a DVT, this was on this admi ssion. She has already been ruled out with negative enzymes and her EKG is unchanged. PAST MEDICAL HISTORY: 1. Coronary artery disease as above. 2. Hypertension. 3. Hyperlipidemia. 4. CVA back in December of this year. 5. Type 2 diabetes. 6. Thyroid nodules. 7. Status post bypass. PAST SURGICAL HISTORY: 1. Coronary artery bypass grafting in 2013 to the vein to the LAD. 2. Appendectomy. 3. Hysterectomy. 4. TPA given for her stroke. OUTPATIENT MEDICATIONS: 1. Metformin. 2. Zoloft. 3. Lisinopril. 4. Dexilant. 5. Flexeril. 6. Plavix. 7. Coreg 3.125 mg b.i.d. 8. Calcium. 9. Lipitor 20 mg at bedtime. 10. Aspirin 325. 11. Norvasc 5 mg a day. 12. Albuterol inhaler. ALLERGIES: No known drug allergies. FAMILY HISTORY: Mother of [place] at age 46. SOCIAL HISTORY: No alcohol, tobacco or drugs. REVIEW OF SYSTEMS: A 12-point review of systems was done and is all negative unless stated in the hi story of present illness. PHYSICAL EXAMINATION: VITAL SIGNS: Temperature 97.2, pulse 73, respiration rate 16, sat 93% on room air, blood pressure 12 2/78. GENERAL: Awake, alert, oriented x3, in no distress. HEENT: Normocephalic, atraumatic. NECK: Supple. LUNGS: Clear. CARDIOVASCULAR: S1, S2, no S3 or S4, no murmurs. ABDOMEN: Soft. Positive bowel sounds. EXTREMITIES: No edema. SKIN: Warm and dry. LABORATORY WORK: Reviewed. CBC is unremarkable. CMP was unremarkable. Troponin was undetectable x 4. BNP was 14, albumin of 4.0. EKG was reviewed, unremarkable. Chest x-ray was unremarkable. Vascular ultrasound, venous duplex was negative for DVT. ASSESSMENT AND PLAN: 1. Chest pain: Atypical and unlikely to be cardiac in nature. At this time, she had a stent just 2 -1/2 weeks ago. I would expect her to have either in-stent thrombosis which is not evidenced by nega tive serial troponins or an unchanged EKG. She should be able to be discharged home today as she has ruled out. I do not think her pain is cardiac in nature. 2. Continue Plavix. 3. We will have her follow up with Dr. Saini as previously scheduled in about 6 weeks and we will g et a vascular ultrasound at that time to assess for possible PVD as she has significant left leg pain s. Thank for allowing me to participate in the care of your patient. We will sign off for now. Please call with any questions.
[2017-09-26] MEDS ORDERED: Atorvastatin Calcium 20 MG TAB PO SCH (21:00)
--- NOTE | 2017-09-27 09:08 | DIS ---
DATE OF ADMISISON: 09/25/2017 DATE OF DISCHARGE: 09/26/2017 DISCHARGE DISPOSITION: Home. FOLLOWUP: 1. Follow up with primary care physician, Dr. Lauren in 1 week. 2. Follow up with primary supervisor trust accounts, Dr. Saini as scheduled. The patient was seen and examined on the day of discharge. Denies any new complaints. No chest pain , shortness of breath or palpitations reported. BRIEF HOSPITAL COURSE: Patient is a 67-year-old -[place] female with coronary artery disease , status post recent cardiac catheterization, presented to the hospital with chest discomfort. Francisco forrest refer to the history and physical dated 09/25/2017 for further details. The patient was admitted to the hospital with the diagnosis of chest discomfort, rule out acute coron jaz syndrome. Her serial cardiac enzymes were negative. There was no significant arrhythmia noted o n the satellite project site monitor. Patient was evaluated by Cardiology, Dr. Longo who was covering for Dr. Lucy arias. Per Cardiology, her chest pain is atypical and unlikely to be cardiac in nature. She was advi sed to continue her aspirin and Plavix. No changes in her medications were made. She has been clear ed by Cardiology for discharge. FINAL DIAGNOSES: 1. Chest discomfort, acute coronary syndrome ruled out. 2. Hypertension. 3. Hyperlipidemia. 4. Coronary artery disease, status post recent cardiac catheterization. 5. Hyperlipidemia. 6. History of cerebrovascular accident. 7. Diabetes mellitus type 2. 8. Chronic kidney disease stage 3. 9. Obesity with a BMI of 35.4. Plan of care was discussed with the patient in detail. She stated understanding.
--- NOTE | 2017-09-30 15:37 | EKG ---
Test Reason : Blood Pressure : / mmHG Vent. Rate : 072 BPM Atrial Rate : 072 BPM P-R Int : 158 ms QRS Dur : 066 ms QT Int : 400 ms P-R-T Axes : 021 -05 050 degrees QTc Int : 438 ms Normal sinus rhythm Abnormal ECG No change 09/07/2017 Confirmed by LALI BOJORQUEZ, LAURIE ([id number]), proposal editor JAMA TAY ([id number]) on 09/30/2017 3:36:51 PM Referred By: Confirmed By:LAURIE ESCALERA MD
--- NOTE | 2017-10-05 19:27 | EKG ---
Test Reason : Blood Pressure : / mmHG Vent. Rate : 069 BPM Atrial Rate : 069 BPM P-R Int : 204 ms QRS Dur : 082 ms QT Int : 384 ms P-R-T Axes : 056 -02 041 degrees QTc Int : 411 ms Normal sinus rhythm with sinus arrhythmia T wave abnormality, consider anterior ischemia Abnormal ECG When compared with ECG of 25-SEP-2017 19:09, (Unconfirmed) No significant change was found Confirmed by KRISTEN MARTÍNEZ ([id number]) on 10/05/2017 7:27:00 PM Referred By: LAURY Confirmed By:KRISTEN MARTÍNEZ
== END 2017-09-26 15:10 | disposition home or self-care (01) ==
LOC: ERS 18:59 → 2SW 21:00
PROVIDERS: ADMIT Internal Medicine Infectious Disease; ATTEND Internal Medicine Infectious Disease
DX: R07.89 Other chest pain (principal); E78.5 Hyperlipidemia, unspecified; I25.10 Atherosclerotic heart disease of native coronary artery without angina pectoris; E11.22 Type 2 diabetes mellitus with diabetic chronic kidney disease; I12.9 Hypertensive chronic kidney disease with stage 1 through stage 4 chronic kidney disease, or unspecified chronic kidney disease; N18.3 Chronic kidney disease, stage 3 (moderate); E66.9 Obesity, unspecified; R51 Headache; Z68.35 Body mass index [BMI] 35.0-35.9, adult; Z79.84 Long term (current) use of oral hypoglycemic drugs; Z79.82 Long term (current) use of aspirin; Z79.02 Long term (current) use of antithrombotics/antiplatelets; Z79.899 Other long term (current) drug therapy; Z98.61 Coronary angioplasty status; Z95.1 Presence of aortocoronary bypass graft; Z90.49 Acquired absence of other specified parts of digestive tract; Z90.710 Acquired absence of both cervix and uterus; Z98.890 Other specified postprocedural states; Z86.73 Personal history of transient ischemic attack (TIA), and cerebral infarction without residual deficits; Z82.49 Family history of ischemic heart disease and other diseases of the circulatory system
CPT/HCPCS: 71045; 80048; 80053; 80061; 82550; 82553 ×3; 82962; 83036; 83735; 83880; 84484 ×4; 85025 ×2; 93005 ×2; 93971; 94760; 96372; 99285; G0378; 36415; 36416; 93010; A4216; J1650

== ENCOUNTER 2017-12-23 15:08 | Inpatient (IN) | payer MEDICARE ==
[2017-12-23 16:04] LABS: #Basophils 0.1 thou/uL (0.0-0.2); #Eosinphils 0.2 thou/uL (0.0-0.7); #Lymphocytes 1.8 thou/uL (1.20-3.40); #Monocytes 0.6 thou/uL (0.11-0.59); #Neutrophils 2.3 thou/uL (1.40-6.50); %Basophils 2.1 % (0.0-1.0); %Eosinophils 4.7 % (0.0-10.0); %Lymphocytes 35.6 % (21.0-51.0); %Monocytes 11.6 % (0.0-10.0); %Neutrophils 46.1 % (42.0-75.0); Hemoglobin 13.8 g/dL (12.0-16.0); Mean Corpuscular HGB CONC 32.6 g/dL (32.0-36.0); Mean Corpuscular Hemoglobin 31.6 pg (27.0-31.0); Mean Corpuscular Volume 97.2 fl (81.0-99.0); Mean Platelet Volume 9.5 fL (7.4-10.4); Platelet Count 244 thou/uL (130-400); RBC Distribution Width 13.3 % (11.5-14.5); Red Blood Cell (RBC) Count 4.36 mill/uL (4.20-5.40); White Blood Cell (WBC) Count 4.9 thou/uL (4.8-10.8)
[2017-12-23 16:10] LABS: PTT 40.1 SEC (22.9-36.1); Prothrombin Time 13.2 SEC (12.0-14.7)
[2017-12-23 16:28] LABS: CKMB 3.2 ng/mL (0-6.6); Troponin I Less than 0.010 ng/mL (< 0.028)
--- NOTE | 2017-12-23 16:51 | RAD ---
CHEST ONE VIEW 12/23/17 HISTORY: Chest pain. COMPARISON: Chest one view 09/25/17. FINDINGS: The lungs are clear. No pneumothorax or effusion. The cardiac silhouette and mediastinal contours are within normal limits. There are bodies in the subscapularis bursa on the right. IMPRESSION: No acute intrathoracic abnormality. POS: [facility]
[2017-12-23] MEDS ORDERED: Fentanyl 100 MCG/2 ML VIAL ONE (16:59)
[2017-12-23 17:04] LABS: AST (SGOT) 31 U/L (5-34); Anion Gap 12 mmol/L (10-20); Potassium 4.4 mmol/L (3.5-5.1); Protein, Total 7.3 g/dL (6.0-8.3)
[2017-12-23 17:06] LABS: ALT (SGPT) 21 U/L (8-55); Albumin 4.3 g/dL (3.4-4.8); Alkaline Phosphatase 116 U/L (40-150); BUN (Urea Nitrogen) 12 mg/dL (9.8-20.1); Bilirubin, Total 0.3 mg/dL (0.2-1.2); CK (CPK) 154 U/L (29-168); Calc. Creatinine Clearance 0 mL/min (70-130); Carbon Dioxide 26 mmol/L (23-31); Chloride 106 mmol/L (98-107); Estimated GFR-MDRD 78; Globulin 3.4 g/dL (2.4-3.5); Glucose 88 mg/dL (80-115); Sodium 139 mmol/L (136-145)
[2017-12-23] MEDS ORDERED: Nitroglycerin 2% Ointment 1 INCH/1 GM Packet ONE (17:41)
[2017-12-23] MEDS ORDERED: Acetaminophen 500 MG TAB ONE (17:41)
[2017-12-23] MEDS ORDERED: Enoxaparin Sodium 80 MG/0.8 ML SYRINGE ONE (18:18)
[2017-12-23] MEDS ORDERED: Nitroglycerin 50 MG/250 ML BOT 250 ML ONE (19:36)
[2017-12-23 20:34] LABS: Troponin I Less than 0.010 ng/mL (< 0.028)
[2017-12-23] MEDS ORDERED: Nitroglycerin 50 MG/250 ML BOT 250 ML IVPB SCH ×2 (21:00→23:30)
[2017-12-23 21:26] VITALS: BMI 33.5
[2017-12-23] MEDS ORDERED: Carvedilol 3.125 MG TAB PO SCH (23:00)
[2017-12-23] MEDS ORDERED: Cyclobenzaprine 10 MG TAB PO PRN (23:21)
[2017-12-23] MEDS ORDERED: PROVENTIL INHALER 6.7 G (200 INHALATIONS) INH PRN (23:21)
[2017-12-23] MEDS ORDERED: Nitroglycerin 0.4 MG TAB (25 Tab Bottle) SL PRN (23:23)
[2017-12-23] MEDS ORDERED: Ondansetron ODT 4 MG TAB PO PRN (23:25)
[2017-12-23] MEDS ORDERED: Senokot 8.6 MG TAB PO PRN (23:25)
[2017-12-23] MEDS ORDERED: Ondansetron HCl/PF 4 MG/2 ML Vial IVP PRN (23:25)
[2017-12-23] MEDS ORDERED: Acetaminophen 325 MG TAB PO PRN (23:25)
[2017-12-23] MEDS ORDERED: Milk Of Magnesia 30 ML UDCUP PO PRN (23:25)
[2017-12-23 23:26] LABS: Troponin I Less than 0.010 ng/mL (< 0.028)
--- NOTE | 2017-12-23 23:27 | PDOC.PN ---
- Subjective Encounter Start Date: 12/23/17 Encounter Start Time: 23:27 - Objective Resuscitation Status: Resuscitation Status FULL:Full Resuscitation Vital Signs & Weight: Weight Weight 166 lb 0.129 oz Result Diagrams: 12/23/17 15:50 12/23/17 15:50 Additional Labs: Accuchecks 12/23/17 22:23 POC Glucose 89 Dx/Plan - Plan * . Review of Systems - Medications/Allergies Allergies/Adverse Reactions: Allergies Allergy/AdvReac Type Severity Reaction Status Date / Time No Known Drug Allergies Allergy Verified 12/23/17 21:18 Medications: Current Medications Hydrocodone Bitart/Acetaminophen ([place] 5/325) 1 tab PO Q4H PRN PRN Reason: Moderate Pain (4-6) Albuterol Sulfate (Proventil Hfa) 2 puff INH Q6H PRN PRN Reason: SOB &/or Wheezing Aspirin (Aspirin) 325 mg PO QAM-[facility] Stop: 12/24/17 09:00 Aspirin (Aspirin) 325 mg PO DAILY [facility] Atorvastatin Calcium (Lipitor) 20 mg PO QPM [facility] Carvedilol (Coreg) 3.125 mg PO BID-[facility] Carvedilol (Coreg) 3.125 mg PO NOW [facility] Stop: 12/23/17 23:59 Last Admin: 12/23/17 22:59 Dose: 3.125 mg Cyclobenzaprine HCl (Flexeril) 10 mg PO TID PRN PRN Reason: Muscle Spasm Enoxaparin Sodium (Lovenox) 75 mg SC 0900,2100 [facility] Gabapentin (Neurontin) 300 mg PO BID [facility] Nitroglycerin/Dextrose (Nitroglycerin 50 Mg/250 Ml Bot) 250 mls @ 0 mls/hr IVPB INF [facility]; Titrate PRN Reason: Protocol Nitroglycerin (Nitrostat) 0.4 mg SL Q5MIN PRN PRN Reason: Chest Pain Pantoprazole Sodium (Protonix) 40 mg PO DAILY [facility] Sertraline HCl (Zoloft) 50 mg PO DAILY [facility]
[2017-12-23] MEDS: HYDROcodone/Acetaminophen 5/325 mg Tablet PO PRN (23:42)
--- NOTE | 2017-12-24 02:07 | CON ---
DATE OF CONSULTATION: 12/23/2017 HISTORY OF PRESENT ILLNESS: Patient is a 67-year-old woman who presented with left leg pain and chest discomfort. The patient has a long history of coronary artery disease. She previously underwent coronary artery bypass surgery in 2013. She had a very small left internal mammary artery. The patient underwent PTCA and stent placed in the LAD. She represented in 08/2017 with recurrent chest pain and underwent repeat stent placement. The patient presents with recurrent chest discomfort. She states that she developed left leg pain and then developed left-sided chest discomfort. It seems to occur for several minutes, then decrease in intensity. She came to the emergency room for further evaluation. Patient reports she continues to have some discomfort. PAST MEDICAL HISTORY: 1. Coronary artery disease. 2. Hypertension. 3. Hyperlipidemia. 4. CVA. PAST SURGICAL HISTORY: Coronary artery bypass surgery, appendectomy, and hysterectomy. MEDICATIONS: See nursing list. ALLERGIES: None. SOCIAL HISTORY: Nonsmoker. PHYSICAL EXAMINATION: GENERAL: This is an elderly woman in no acute distress. Blood pressure was 145 /82, heart rate is 60. NECK: Showed no jugular vein distention. LUNGS: Clear to auscultation. HEART: Regular rate and rhythm. Normal S1, S2. ABDOMEN: Nondistended. EXTREMITIES: Showed trace edema. LABORATORY DATA: White blood count 4.9, hemoglobin 13.8, hematocrit 42.3, platelets 244. Sodium is 139, potassium 4.4, chloride 106, carbon dioxide 26, BUN 12, creatinine 0.87. Troponin less than 0.01. Her EKG revealed normal sinus rhythm with a T-wave abnormality suggestive of ischemia. IMPRESSION: 1. Chest pain suggestive possibly due to recurrent angina. 2. History of percutaneous transluminal coronary angioplasty and stent placed. 3. Hypertension. 4. Hyperlipidemia. PLAN: This patient presents with recurrent chest pain with no acute changes in her ECG. Cardiac enzymes are unremarkable.The patient will continue on IV nitroglycerin. We will obtain serial cardiac enzymes. We will follow this patient with you throughout her hospitalization. Critical care note time 30 minutes. SIRENA
[2017-12-24 02:21] LABS: #Basophils 0.1 thou/uL (0.0-0.2); #Eosinphils 0.2 thou/uL (0.0-0.7); #Monocytes 0.5 thou/uL (0.11-0.59); #Neutrophils 2.1 thou/uL (1.40-6.50); %Basophils 1.1 % (0.0-1.0); %Eosinophils 4.8 % (0.0-10.0); %Lymphocytes 41.3 % (21.0-51.0); %Monocytes 9.9 % (0.0-10.0); %Neutrophils 42.9 % (42.0-75.0); Hemoglobin 13.5 g/dL (12.0-16.0); Mean Corpuscular Hemoglobin 31.4 pg (27.0-31.0); Mean Corpuscular Volume 95.3 fl (81.0-99.0); Mean Platelet Volume 9.3 fL (7.4-10.4); Platelet Count 226 thou/uL (130-400); RBC Distribution Width 13.2 % (11.5-14.5); White Blood Cell (WBC) Count 4.8 thou/uL (4.8-10.8)
[2017-12-24 02:27] LABS: Troponin I Less than 0.010 ng/mL (< 0.028)
[2017-12-24 02:31] LABS: Anion Gap 11 mmol/L (10-20); BUN (Urea Nitrogen) 10 mg/dL (9.8-20.1); Calc. Creatinine Clearance 75 mL/min (70-130); Calcium 9.6 mg/dL (7.8-10.44); Carbon Dioxide 25 mmol/L (23-31); Chloride 106 mmol/L (98-107); Estimated GFR-MDRD 81; Glucose 150 mg/dL (80-115); Magnesium 1.9 mg/dL (1.6-2.6); Potassium 3.6 mmol/L (3.5-5.1); Sodium 138 mmol/L (136-145)
[2017-12-24] MEDS ORDERED: ALPRAZolam 0.25 MG TAB PO SCH (02:45)
[2017-12-24] MEDS: HYDROcodone/Acetaminophen 5/325 mg Tablet PO PRN (05:44)
[2017-12-24] MEDS ORDERED: Insulin Regular 300 UNITS/3 ML VIAL SC PRN ×2 (07:32)
[2017-12-24] MEDS ORDERED: Dextrose 50% Abboject 50 ML SYRINGE SLOW IVP PRN (07:32)
[2017-12-24] MEDS ORDERED: Dextrose 5% in Water 1,000 ML IV PRN (07:32)
[2017-12-24] MEDS: Carvedilol 3.125 MG TAB PO SCH ×2 (07:52→18:26)
[2017-12-24] MEDS: Enoxaparin Sodium 80 MG/0.8 ML SYRINGE SC SCH ×2 (07:53→21:35)
[2017-12-24] MEDS: Aspirin 325 MG TAB PO SCH (07:53)
[2017-12-24] MEDS: Docusate 100 MG CAP PO SCH ×2 (07:56→21:34)
--- NOTE | 2017-12-24 07:58 | HP ---
DATE OF ADMISSION: 12/23/2017 The patient was seen and examined on 12/23/2017 PRIMARY CARE PHYSICIAN: Dr. Louie Lauren. PRIMARY BRAND ACTIVATION MANAGER: Dr. Saini. CHIEF COMPLAINT: Chest discomfort. HISTORY OF PRESENT ILLNESS: The patient is a 67-year-old female with coronary artery disease, status post CABG with last cardiac catheterization in 08/2017, hypertension, hyperlipidemia, and diabetes m ellitus type 2, presented to the emergency room with chest discomfort that started around 15-20 minut es prior to ER arrival. She was on her way to the emergency room for left lower extremity pain that has been ongoing for one week. The chest discomfort was substernal, moderate in intensity, associate d with shortness of breath on mild exertion and nausea. Over the last 2 days, she has on and of diap horesis without any chest discomfort. Lately, she gets short of breath on minimal exertion. She den ies any vomiting, palpitations, syncope, recent immobilization, travel or heartburn. Her initial reason to come to the emergency room was left lower extremity pain along with swelling th at has been ongoing for one week. The pain from the lower extremity is radiating to her left shoulde r. She denies any recent trauma or erythema in the left lower extremity. She is compliant with all of her medication including aspirin. She is not on Plavix at this time per Cardiology. Initial vital signs in the emergency room showed temperature 97.9, respirations 16, pulse 65, blood p ressure 175/82 with O2 saturation 97% on room air. EKG showed sinus rhythm with some nonspecific ST- T wave changes in the anterior leads with left axis deviation. Chest x-ray by my review was negative for infiltrate. She took aspirin prior to ER arrival. She was started on nitroglycerin drip with i mprovement in her symptoms. She was started on Lovenox 1 mg/kg and received 1 dose of fentanyl in th e emergency room. PAST MEDICAL HISTORY: 1. Coronary artery disease, status post CABG and cardiac catheterization approximately 4 months ago. 2. Hypertension. 3. Hyperlipidemia. 4. History of cerebrovascular accident. 5. Diabetes mellitus type 2. 6. Chronic kidney disease stage 3. 7. Obesity with a BMI 33.5. PAST SURGICAL HISTORY: 1. Coronary artery bypass grafting in 2013. 2. Cardiac catheterization. 3. Appendectomy. 4. Hysterectomy 5. History of TPA for stroke-like symptoms in 2017. ALLERGIES: Patient denies any drug allergies. CURRENT HOME MEDICATIONS: Albuterol inhaler as needed, Xanax as needed, amlodipine 5 mg daily, aspir in 325 mg daily, Lipitor 20 mg q.p.m., calcium with vitamin D daily, carvedilol 3.125 mg b.i.d., Flex eril as needed, lisinopril 40 mg daily, metformin ER 500 mg daily, sublingual nitroglycerin as needed , Protonix 40 mg daily, Zoloft 50 mg daily. SOCIAL HISTORY: Patient currently lives at home. She is a teacher. She is . at the bedside. No smoking, alcohol or drug use. She is full code, makes her own decision with the help o f her family. FAMILY HISTORY: Mother had [place] at age of 46, blood pressure runs in her family. REVIEW OF SYSTEMS, PHYSICAL EXAMINATION, LABORATORY FINDINGS, RADIOLOGY FINDINGS: Please refer to my progress note dated 12/23/2017. IMPRESSION: 1. Unstable angina. Her chest discomfort has improved with nitroglycerin drip. 2. Coronary artery disease, status post coronary artery bypass graft and cardiac catheterization in 08/2017. 3. Chronic kidney disease stage 2. 4. Hypertension. 5. Hyperlipidemia. 6. Diabetes mellitus type 2. 7. Left lower extremity pain, rule out deep venous thrombosis. 8. Gastroesophageal reflux disease. 9. History of cerebrovascular accident. 10. Hypertension. 11. Hyperlipidemia. 12. Obesity with a BMI 33.5. PLAN: The patient will be monitored in the Intensive Care Unit. We will continue nitroglycerin drip . Cardiology will be consulted. We will continue Lovenox 1 mg/kg per Cardiology. Serial troponins. We will monitor labs on a daily basis. Rule out deep venous thrombosis in the left lower extremity . Insulin sliding scale. Echocardiogram. Plan of care was discussed with the patient in detail. She stated understanding. DISPOSITION: Home in probably 2-3 days based on Cardiology input.
[2017-12-24] MEDS ORDERED: Aspirin 325 MG TAB PO SCH (08:00)
[2017-12-24] MEDS ORDERED: Gabapentin 300 MG CAP PO SCH (09:00)
--- NOTE | 2017-12-24 09:18 | ULT ---
LEFT LOWER EXTREMITY VENOUS DOPPLER: HISTORY: Left lower extremity pain. COMPARISON: Doppler study of 09/25/17. FINDINGS: Real-time, gomez scale, color flow, and spectral analysis of the left lower extremity venous system wi th linear ray transducer. Common femoral, femoral proximal, greater saphenous, and deep femoral vein as well as popliteal and posterior tibial veins were interrogated. Normal flow, augmentation, and compression. IMPRESSION: No deep vein thrombosis. POS: [facility]
--- NOTE | 2017-12-24 10:13 | CON ---
DATE OF CONSULTATION: 12/24/2017 SERVICE: Pulmonary Medicine. REASON FOR CONSULTATION: ICU patient. HISTORY OF PRESENT ILLNESS: The patient is a 67-year-old -Martiniquais female with past medical history significant for hypertension. She had lower extremity swelling which got worse over a period of time. It was worse in the left leg and right leg. She also had an exacerbation of her chronic leg discomfort. Either way, on the way to the emergency department for leg pain and swelling, she started having onset of chest discomfort. In the Emergency Department, she was discovered to have severely elevated blood pressures. She was given a dose of Lasix and she had a significant amount of urine output. She is also started on nitro drip. Because of her severe blood pressures, she was tucked into the ICU. At this point, she has returned to her usual state of health. Her leg discomfort has returned to normal and the nitro drip has been weaned overnight. She has no specific complaints this morning. Ultrasound of the leg was done this morning. She denies any cough, fevers, chills, nausea, vomiting, diarrhea or constipation. PHYSICAL EXAMINATION: VITAL SIGNS: Afebrile, pulse 70, blood pressure 119/73, respirations 17, saturation 99% on room air. GENERAL: The patient is awake, alert, no apparent distress. LUNGS: Excellent air entry. Minimal dependent crackles are present. HEART: Normal rate, regular. ABDOMEN: Soft, nontender, nondistended. Bowel sounds are positive. MUSCULOSKELETAL: No cyanosis or clubbing. There is 1+ pitting in the left lower extremity and trace pitting in the right lower extremity. GENITOURINARY: No [place]. NEUROLOGIC: Grossly nonfocal. LABORATORY DATA: WBC 4.8, hemoglobin 13.5, platelets 226,000. INR 1.0. Basic metabolic profile and magnesium are unremarkable. Cardiac enzymes are negative x3. BNP 27. Liver function studies were also unremarkable. IMAGIN. Chest x-ray demonstrates no acute cardiopulmonary abnormality. There is a previous sternotomy is evident. 2. Ultrasound of the left lower extremity demonstrates no evidence of DVT. ASSESSMENT: 1. Hypertensive urgency without clear evidence of end organ damage. 2. Chest pain, resolved. 3. Leg discomfort with swelling, back to baseline. PLAN: We will continue supportive care. I will transition the patient out of the ICU to the regular floor. Urine drug screen will be collected. Pulmonary or Critical Care will continue to follow if the patient remains in this location. 70 minutes have been devoted to this patient in various activities. I personally reviewed all imaging studies and laboratory data noted within this document. For fifty percent of this time, I was interacting with the patient at the bedside or coordinating care with the care team. For the remainder of the time I was immediately available to the patient in the hospital unit. SIRENA
[2017-12-24] MEDS ORDERED: Furosemide 20 MG TAB PO SCH (10:15)
[2017-12-24] MEDS ORDERED: Cyclobenzaprine 10 MG TAB PO PRN (10:51)
[2017-12-24] MEDS: Gabapentin 300 MG CAP PO SCH ×2 (15:40→21:35)
--- NOTE | 2017-12-24 20:41 | PDOC.PN ---
- Subjective Encounter Start Date: 12/24/17 Encounter Start Time: 10:30 Patient seen and examined. No new complaints. No overnight events. No CP/SOB. Off Nitro drip. LLE pain improving - Objective Resuscitation Status: Resuscitation Status FULL:Full Resuscitation MAR Reviewed: Yes Vital Signs & Weight: Vital Signs (12 hours) Temp Pulse Pulse BP BP Pulse Ox Pulse Ox 12/24/17 16:00 98.7 F 12/24/17 12:00 97.7 F 12/24/17 09:50 66 73 117/77 130/79 98 99 Weight Weight 166 lb 0.129 oz Most Recent Monitor Data Heart Rate from ECG 77 NIBP 135/79 NIBP BP-Mean 97 Respiration from ECG 15 SpO2 98 I&O: 12/23/17 12/24/17 12/25/17 06:59 06:59 06:59 Intake Total 1076.2 850 Output Total 1500 850 Balance -423.8 0 Result Diagrams: 12/24/17 01:44 12/24/17 01:44 Additional Labs: Accuchecks 12/24/17 12/24/17 12/24/17 15:38 11:14 08:01 POC Glucose 98 126 H 109 12/23/17 22:23 POC Glucose 89 Radiology Reviewed by me: Yes (CXR - neg, Doppler - negative for DVT) EKG Reviewed by me: Yes (Tele SR) Phys Exam - Physical Examination Constitutional: NAD Respiratory: no wheezing, no rhonchi Cardiovascular: RRR, no rub Gastrointestinal: soft, non-tender, positive bowel sounds Musculoskeletal: no edema Neurological: moves all 4 limbs Dx/Plan - Plan DVT proph w/SCDs IMPRESSION: 1. Unstable angina. Her chest discomfort has improved with nitroglycerin drip. 2. Coronary artery disease, status post coronary artery bypass graft and cardiac catheterization in 08/2017. 3. Chronic kidney disease stage 2. 4. Hypertension. 5. Hyperlipidemia. 6. Diabetes mellitus type 2. 7. Left lower extremity pain, rule out deep venous thrombosis. 8. Gastroesophageal reflux disease. 9. History of cerebrovascular accident. 10. Hypertension. 11. Hyperlipidemia. 12. Obesity with a BMI 33.5. PLAN: * Off Nitro drip * Cont Lovenox 1 mg/kg per Cardio * ACEI on hold due to relative low BP * Increase Gabapentin to TID * Cont current med as below * Started on diuretics * Transfer to tele Review of Systems - Review of Systems Respiratory: negative: Cough, Dry, Shortness of Breath, Hemoptysis, SOB with Excertion, Pleuritic Pain, Sputum, Wheezing Cardiovascular: negative: chest pain, palpitations, orthopnea, paroxysmal nocturnal dyspnea, edema, light headedness Gastrointestinal: negative: Nausea, Vomiting, Abdominal Pain, Diarrhea, Constipation, Melena, Hematochezia - Medications/Allergies Allergies/Adverse Reactions: Allergies Allergy/AdvReac Type Severity Reaction Status Date / Time No Known Drug Allergies Allergy Verified 12/23/17 21:18 Medications: Current Medications Acetaminophen (Tylenol) 650 mg PO Q4H PRN PRN Reason: Headache/Fever or Pain Hydrocodone Bitart/Acetaminophen ([place] 5/325) 1 tab PO Q4H PRN PRN Reason: Moderate Pain (4-6) Last Admin: 12/24/17 05:44 Dose: 1 tab Albuterol Sulfate (Proventil Hfa) 2 puff INH Q6H PRN PRN Reason: SOB &/or Wheezing Aspirin (Aspirin) 325 mg PO QAM-[facility] Last Admin: 12/24/17 07:53 Dose: 325 mg Atorvastatin Calcium (Lipitor) 20 mg PO QPM [facility] Last Admin: 12/24/17 18:26 Dose: 3.125 mg Cyclobenzaprine HCl (Flexeril) 10 mg PO TIDPRN PRN PRN Reason: Muscle Spasm Cyclobenzaprine HCl (Flexeril) 5 mg PO TID PRN PRN Reason: Muscle Spasm Stop: 12/26/17 10:52 Dextrose/Water (Dextrose 50%) 25 gm SLOW IVP PRN PRN PRN Reason: Hypoglycemia Docusate Sodium (Colace) 100 mg PO BID [facility] Last Admin: 12/24/17 07:56 Dose: 100 mg Enoxaparin Sodium (Lovenox) 75 mg SC 0900,2100 [facility] Last Admin: 12/24/17 07:53 Dose: 75 mg Furosemide (Lasix) 20 mg PO DAILY [facility] Gabapentin (Neurontin) 300 mg PO TID [facility] Last Admin: 12/24/17 15:40 Dose: 300 mg Glucagon (Glucagon) 1 mg IM PRN PRN PRN Reason: Hypoglycemia Dextrose/Water (D5w) 1,000 mls @ 0 mls/hr IV .Q0M PRN; As Directed PRN Reason: Hypoglycemia Insulin Human Regular (Humulin R) 0 units SC .MILD SLIDING SCALE PRN PRN Reason: Mild Correctional Scale Insulin Human Regular (Humulin R) 0 units SC .BEDTIME SLIDING SC PRN PRN Reason: Bedtime Correctional Scale Magnesium Hydroxide (Milk Of Magnesium) 30 ml PO DAILYPRN PRN PRN Reason: Constipation Nitroglycerin (Nitrostat) 0.4 mg SL Q5MIN PRN PRN Reason: Chest Pain Ondansetron HCl (Zofran Odt) 4 mg PO Q6H PRN PRN Reason: Nausea/Vomiting Ondansetron HCl (Zofran) 4 mg IVP Q6H PRN PRN Reason: Nausea/Vomiting Pantoprazole Sodium (Protonix) 40 mg PO DAILY [facility] Last Admin: 12/24/17 07:52 Dose: 40 mg Senna (Senokot) 2 tab PO HSPRN PRN PRN Reason: Constipation Sertraline HCl (Zoloft) 50 mg PO DAILY [facility] Last Admin: 12/24/17 07:52 Dose: 50 mg
[2017-12-24] MEDS: Atorvastatin Calcium 20 MG TAB PO SCH (21:34)
[2017-12-25] MEDS ORDERED: Enoxaparin Sodium 80 MG/0.8 ML SYRINGE SC SCH (09:00)
[2017-12-25 09:08] LABS: Albumin 3.9 g/dL (3.4-4.8); Anion Gap 13 mmol/L (10-20); BUN (Urea Nitrogen) 14 mg/dL (9.8-20.1); BUN/Creatinine Ratio 15.56; Calc. Creatinine Clearance 72 mL/min (70-130); Calcium 9.8 mg/dL (7.8-10.44); Carbon Dioxide 24 mmol/L (23-31); Chloride 107 mmol/L (98-107); Estimated GFR-MDRD 75; Glucose 108 mg/dL (80-115); Magnesium 2.2 mg/dL (1.6-2.6); Potassium 4.9 mmol/L (3.5-5.1); Sodium 139 mmol/L (136-145)
[2017-12-25] MEDS: Docusate 100 MG CAP PO SCH ×2 (09:28→20:17)
[2017-12-25] MEDS: Gabapentin 300 MG CAP PO SCH ×3 (09:28→20:17)
[2017-12-25] MEDS: Aspirin 325 MG TAB PO SCH (09:28)
[2017-12-25 09:34] LABS: #Eosinphils 0.3 thou/uL (0.0-0.7); #Lymphocytes 1.4 thou/uL (1.20-3.40); #Monocytes 0.6 thou/uL (0.11-0.59); #Neutrophils 2.1 thou/uL (1.40-6.50); %Basophils 0.8 % (0.0-1.0); %Eosinophils 7.2 % (0.0-10.0); %Lymphocytes 30.9 % (21.0-51.0); %Neutrophils 47.1 % (42.0-75.0); Hemoglobin 14.8 g/dL (12.0-16.0); Mean Corpuscular HGB CONC 32.4 g/dL (32.0-36.0); Mean Corpuscular Hemoglobin 30.9 pg (27.0-31.0); Mean Corpuscular Volume 95.2 fl (81.0-99.0); Mean Platelet Volume 9.6 fL (7.4-10.4); Platelet Count 225 thou/uL (130-400); RBC Distribution Width 13.3 % (11.5-14.5); White Blood Cell (WBC) Count 4.5 thou/uL (4.8-10.8)
--- NOTE | 2017-12-25 09:41 | PRG ---
DATE OF SERVICE: 12/25/2017 SUBJECTIVE: Ms. Rothman is doing well today. She is not having any chest pain. Her legs feels bett er. PHYSICAL EXAMINATION: VITAL SIGNS: Blood pressure 116/69, pulse is 80, it is regular. LUNGS: Clear. CARDIAC: Normal S1 and S2. ABDOMEN: Soft, nontender. EXTREMITIES: No edema. SKIN: Warm and dry. LABORATORY DATA: On reviewing the records, the patient's troponin levels are all normal. The patien t apparently had very high blood pressures initially when she had some anginal type chest pain. The blood pressure here was recorded at 175/82. ASSESSMENT: 1. Previous bypass surgery. 2. Previous severe stenosis in a saphenous vein graft with subsequent restenosis and repeat stenting in 08/2017. 3. Atypical chest pain, some pain suspicious for angina. PLAN: 1. Stress testing to be done today. 2. We will hold Plavix today. If she does have restenosis, she may need to be re-operated on. We w ill continue Lovenox for now, but we will reduce dose.
[2017-12-25 10:23] LABS: Eosinophils 6 % (0-10); Lymphocytes 31 % (21-51); MDiff Complete? YES; Monocytes 10 % (0-10); Neutrophil 52 % (42-75); RBC Morphology Normal; Reactive Lymphocytes 1 % (0-10)
--- NOTE | 2017-12-25 11:12 | PRG ---
DATE OF SERVICE: 12/25/2017 SERVICE: Pulmonary Medicine. INTERVAL HISTORY: The patient is doing excellent from a respiratory standpoint. She has no chest pa in or shortness of breath. Otherwise, there are no specific complaints and no overnight events were reported. PHYSICAL EXAMINATION: VITAL SIGNS: Afebrile, pulse 72, blood pressure 129/90, respirations 29, saturation 99% on room air. GENERAL: The patient is awake, alert, no apparent distress. LUNGS: There is excellent air entry with no prolonged expiratory phase, wheezing, rhonchi or crackle s. HEART: Normal rate and regular. ABDOMEN: Soft, nontender, nondistended. Bowel sounds are positive. MUSCULOSKELETAL: No cyanosis or clubbing. There is no pitting in the bilateral lower extremities. NEUROLOGIC: Grossly nonfocal. LABORATORY DATA: Basic metabolic profile, phosphorus, magnesium are completely unremarkable. WBC 4. 5. Otherwise, CBC is also unremarkable. IMAGING: Echocardiogram demonstrates normal ejection fraction. Mild to moderate mitral regurgitatio n is present as well as moderate tricuspid regurgitation. ASSESSMENT: 1. Hypertensive urgency without clear evidence of end organ damage. 2. Chest pain, resolved. 3. Leg discomfort with swelling, back to baseline. DISCUSSION AND PLAN: The patient is doing absolutely fantastic from a respiratory perspective. She remains stable for transition out of the ICU to the telemetry unit. Pulmonary will continue to follo w while she remains in this location. She is going down for stress test today. We will need to work on keeping her close to euvolemic as I do think that her volume status being elevated what was likel y contributing to her hypertensive event.
[2017-12-25] MEDS: Carvedilol 3.125 MG TAB PO SCH ×2 (12:43→17:35)
[2017-12-25] MEDS: Furosemide 20 MG TAB PO SCH (12:43)
--- NOTE | 2017-12-25 13:47 | NM ---
CARDIAC SPECT: CLINICAL HISTORY: 67-year-old black female with chest pain, coronary artery disease, CABG, hypertension, hyperlipidemia , diabetes, shortness of breath, and stent placement. TECHNIQUE: A myocardial perfusion scan was performed using the single isotope one day protocol with technetium-9 9m sestamibi. 9 mCi were injected intravenously for the rest exam followed by 29 mCi for the stress e xam. Pharmacologic stress with Lexiscan was monitored and interpreted by Dr. Saini. FINDINGS: Homogeneous tracer distribution is seen in the myocardial segments on stress and rest images without fixed or reversible defects. GATED SPECT LVEF: 79%. WALL MOTION EXAM: Normal. IMPRESSION: Normal myocardial perfusion scan. POS: OFF
[2017-12-25] MEDS ORDERED: Regadenoson 0.4 MG/5 ML SYRINGE ONE (16:24)
[2017-12-25] MEDS ORDERED: Clopidogrel Bisulfate 75 MG TAB PO SCH (19:15)
[2017-12-25] MEDS: Enoxaparin Sodium 80 MG/0.8 ML SYRINGE SC SCH (19:21)
[2017-12-25] MEDS: Atorvastatin Calcium 20 MG TAB PO SCH (20:17)
[2017-12-25] MEDS: Enoxaparin Sodium 40 MG/0.4 ML SYRINGE SC SCH (20:18)
--- NOTE | 2017-12-25 22:30 | ULT ---
LEFT LOWER EXTREMITY ARTERIAL VASCULAR DUPLEX INCLUDING COLOR AND SPECTRAL DOPPLER IMAGING. HISTORY: A 67-year-old female with a history of left leg pain. TECHNIQUE: Exam performed from the groin down to the ankle. FINDINGS: The visualized common femoral artery, profunda femoral artery, superficial femoral artery (proximally , mid, and distally), the pulmonary artery, and the anterior tibial artery all demonstrated triphasic , unremarkable flow. The posterior tibial artery and dorsalis pedis arteries demonstrated monophasic flow, indicating evidence for arteriovascular disease involving the posterior tibialis and dorsalis pedis arteries. IMPRESSION: Unremarkable triphasic flow, down to the level of the pulmonary artery and including the anterior tib ial artery, with monophasic flow, indicating atherosclerotic stenotic disease involving the posterior tibial artery and the dorsalis pedis artery. POS: [facility]
--- NOTE | 2017-12-25 22:48 | PDOC.PN ---
- Subjective Encounter Start Date: 12/25/17 Encounter Start Time: 10:30 Patient seen and examined. No new complaints. No overnight events. Feels better. No CP. LLE pain better - Objective Resuscitation Status: Resuscitation Status FULL:Full Resuscitation MAR Reviewed: Yes Vital Signs & Weight: Vital Signs (12 hours) Temp 12/25/17 20:00 97.5 F L Weight Weight 169 lb 12.095 oz Most Recent Monitor Data Heart Rate from ECG 89 NIBP 144/90 NIBP BP-Mean 106 Respiration from ECG 19 SpO2 99 I&O: 12/24/17 12/25/17 12/26/17 06:59 06:59 06:59 Intake Total 1076.2 1090 780 Output Total 1500 1325 1750 Balance -423.8 -235 -970 Result Diagrams: 12/26/17 03:40 12/26/17 03:40 Additional Labs: Accuchecks 12/25/17 12/25/17 12/25/17 20:30 16:56 12:19 POC Glucose 122 H 130 H 90 12/25/17 06:25 POC Glucose 108 EKG Reviewed by me: Yes (Tele SR) Phys Exam - Physical Examination Constitutional: NAD Respiratory: no wheezing, no rhonchi Cardiovascular: RRR, no rub Gastrointestinal: soft, non-tender, positive bowel sounds Musculoskeletal: no edema Neurological: moves all 4 limbs Dx/Plan - Plan DVT proph w/SCDs IMPRESSION: 1. Unstable angina with Hypertensive emergency. s/p nitroglycerin drip. 2. Coronary artery disease, status post coronary artery bypass graft and cardiac catheterization in 08/2017. 3. Chronic kidney disease stage 2. 4. Hypertension. 5. Hyperlipidemia. 6. Diabetes mellitus type 2. 7. Left lower extremity pain, DVT ruled out 8. Gastroesophageal reflux disease. 9. History of cerebrovascular accident. 10. Hypertension. 11. Hyperlipidemia. 12. Obesity with a BMI 33.5. PLAN: * Cardiology following * Stress test today * Cont Lovenox per Cardiology - dose reduced by Cardio * Off Nitro drip * Cont Gabapentin to TID * Cont current med as below * Await Tele bed Review of Systems - Review of Systems Respiratory: negative: Cough, Dry, Shortness of Breath, Hemoptysis, SOB with Excertion, Pleuritic Pain, Sputum, Wheezing Cardiovascular: negative: chest pain, palpitations, orthopnea, paroxysmal nocturnal dyspnea, edema, light headedness, other - Medications/Allergies Allergies/Adverse Reactions: Allergies Allergy/AdvReac Type Severity Reaction Status Date / Time No Known Drug Allergies Allergy Verified 12/23/17 21:18 Medications: Current Medications Acetaminophen (Tylenol) 650 mg PO Q4H PRN PRN Reason: Headache/Fever or Pain Hydrocodone Bitart/Acetaminophen ([place] 5/325) 1 tab PO Q4H PRN PRN Reason: Moderate Pain (4-6) Last Admin: 12/24/17 05:44 Dose: 1 tab Albuterol Sulfate (Proventil Hfa) 2 puff INH Q6H PRN PRN Reason: SOB &/or Wheezing Aspirin (Aspirin) 325 mg PO QAM-[facility] Last Admin: 12/25/17 09:28 Dose: 325 mg Atorvastatin Calcium (Lipitor) 20 mg PO QPM [facility] Last Admin: 12/25/17 20:17 Dose: 20 mg Carvedilol (Coreg) 3.125 mg PO BID-[facility] Last Admin: 12/25/17 17:35 Dose: 3.125 mg Clopidogrel Bisulfate (Plavix) 75 mg PO DAILY [facility] Cyclobenzaprine HCl (Flexeril) 10 mg PO TIDPRN PRN PRN Reason: Muscle Spasm Last Admin: 12/25/17 14:28 Dose: 10 mg Cyclobenzaprine HCl (Flexeril) 5 mg PO TID PRN PRN Reason: Muscle Spasm Stop: 12/26/17 10:52 Dextrose/Water (Dextrose 50%) 25 gm SLOW IVP PRN PRN PRN Reason: Hypoglycemia Docusate Sodium (Colace) 100 mg PO BID [facility] Last Admin: 12/25/17 20:17 Dose: 100 mg Enoxaparin Sodium (Lovenox) 40 mg SC 0900,2100 [facility] Last Admin: 12/25/17 20:18 Dose: 40 mg Furosemide (Lasix) 20 mg PO DAILY [facility] Last Admin: 12/25/17 12:43 Dose: 20 mg Gabapentin (Neurontin) 300 mg PO TID [facility] Last Admin: 12/25/17 20:17 Dose: 300 mg Glucagon (Glucagon) 1 mg IM PRN PRN PRN Reason: Hypoglycemia Dextrose/Water (D5w) 1,000 mls @ 0 mls/hr IV .Q0M PRN; As Directed PRN Reason: Hypoglycemia Insulin Human Regular (Humulin R) 0 units SC .MILD SLIDING SCALE PRN PRN Reason: Mild Correctional Scale Insulin Human Regular (Humulin R) 0 units SC .BEDTIME SLIDING SC PRN PRN Reason: Bedtime Correctional Scale Magnesium Hydroxide (Milk Of Magnesium) 30 ml PO DAILYPRN PRN PRN Reason: Constipation Nitroglycerin (Nitrostat) 0.4 mg SL Q5MIN PRN PRN Reason: Chest Pain Ondansetron HCl (Zofran Odt) 4 mg PO Q6H PRN PRN Reason: Nausea/Vomiting Ondansetron HCl (Zofran) 4 mg IVP Q6H PRN PRN Reason: Nausea/Vomiting Pantoprazole Sodium (Protonix) 40 mg PO DAILY [facility] Last Admin: 12/25/17 09:28 Dose: 40 mg Senna (Senokot) 2 tab PO HSPRN PRN PRN Reason: Constipation Sertraline HCl (Zoloft) 50 mg PO DAILY [facility] Last Admin: 12/25/17 09:28 Dose: 50 mg
[2017-12-26 04:36] LABS: #Basophils 0.1 thou/uL (0.0-0.2); #Eosinphils 0.2 thou/uL (0.0-0.7); #Lymphocytes 1.4 thou/uL (1.20-3.40); #Monocytes 0.6 thou/uL (0.11-0.59); #Neutrophils 1.7 thou/uL (1.40-6.50); %Basophils 1.6 % (0.0-1.0); %Eosinophils 5.7 % (0.0-10.0); %Lymphocytes 34.9 % (21.0-51.0); %Monocytes 14.3 % (0.0-10.0); %Neutrophils 43.5 % (42.0-75.0); Hemoglobin 13.6 g/dL (12.0-16.0); Mean Corpuscular HGB CONC 33.7 g/dL (32.0-36.0); Mean Corpuscular Hemoglobin 32.2 pg (27.0-31.0); Mean Corpuscular Volume 95.4 fl (81.0-99.0); Mean Platelet Volume 9.4 fL (7.4-10.4); Platelet Count 228 thou/uL (130-400); RBC Distribution Width 13.4 % (11.5-14.5); Red Blood Cell (RBC) Count 4.22 mill/uL (4.20-5.40); White Blood Cell (WBC) Count 3.9 thou/uL (4.8-10.8)
[2017-12-26 04:50] LABS: Albumin 3.6 g/dL (3.4-4.8); Anion Gap 11 mmol/L (10-20); BUN (Urea Nitrogen) 14 mg/dL (9.8-20.1); BUN/Creatinine Ratio 17.07; Calc. Creatinine Clearance 79 mL/min (70-130); Calcium 9.9 mg/dL (7.8-10.44); Carbon Dioxide 28 mmol/L (23-31); Chloride 105 mmol/L (98-107); Estimated GFR-MDRD 84; Glucose 144 mg/dL (80-115); Magnesium 2.2 mg/dL (1.6-2.6); Phosphorus 4.2 mg/dL (2.3-4.7); Potassium 4.2 mmol/L (3.5-5.1); Sodium 140 mmol/L (136-145)
[2017-12-26] MEDS ORDERED: Clopidogrel Bisulfate 75 MG TAB PO SCH (09:00)
[2017-12-26] MEDS: Aspirin 325 MG TAB PO SCH (09:03)
[2017-12-26] MEDS: Furosemide 20 MG TAB PO SCH (09:05)
[2017-12-26] MEDS: Carvedilol 3.125 MG TAB PO SCH (09:05)
[2017-12-26] MEDS: Gabapentin 300 MG CAP PO SCH ×2 (09:05→14:45)
[2017-12-26] MEDS: Docusate 100 MG CAP PO SCH (09:07)
[2017-12-26] MEDS: Enoxaparin Sodium 40 MG/0.4 ML SYRINGE SC SCH (09:07)
--- NOTE | 2017-12-26 09:25 | PRG ---
DATE OF SERVICE: 12/26/2017 SERVICE: Pulmonary Medicine. INTERVAL HISTORY: The patient is doing fine from a respiratory standpoint. She is breathing comfort ably. She has no chest pain or shortness of breath. Otherwise, she is improved to her usual state o f health. PHYSICAL EXAMINATION: VITAL SIGNS: Afebrile, pulse 76, blood pressure 106/72, respirations 18, saturation 96% on room air. GENERAL: The patient is awake, alert, in no apparent distress. LUNGS: Excellent air entry. There is no prolonged expiratory phase, wheezing, rhonchi, or crackles present. HEART: Normal rate, regular. ABDOMEN: Soft, nontender, nondistended. Bowel sounds are positive. MUSCULOSKELETAL: No cyanosis or clubbing. Pitting edema is resolved. GENITOURINARY: No [place]. NEUROLOGIC: Grossly nonfocal. LABORATORY DATA: WBC 3.9, hemoglobin 13.6, platelets 228,000. INR 1.0. Basic metabolic profile is unremarkable as is magnesium and phosphorus. IMAGING: Ultrasound of the bilateral lower extremities demonstrates no evidence of pulmonary embolis m. ASSESSMENT: 1. Hypertensive urgency without clear evidence of end organ damage. 2. Chest pain, resolved. 3. Leg discomfort with swelling, at baseline currently. DISCUSSION AND PLAN: The patient is doing fantastic from a respiratory standpoint. Cardiovascular, what was okay. She did not have any significant abnormality on the stress test. From my perspective , she is stable for transition to the floor, or discharge home. Pulmonary will continue to follow if she remains in this location.
[2017-12-26 12:07] VITALS: TEMP 97.7
[2017-12-26 13:14] VITALS: BP 150/90
[2017-12-26] MEDS ORDERED: Lisinopril 20 MG TAB PO SCH (13:15)
[2017-12-26] MEDS ORDERED: Amlodipine 5 MG TAB PO SCH (13:15)
--- NOTE | 2017-12-26 14:23 | PRG ---
DATE OF SERVICE: 12/26/2017 SUBJECTIVE: Ms. Rothman is doing better today. No chest pain or pressure. PHYSICAL EXAMINATION: VITAL SIGNS: Blood pressure was low this morning, but now it is 150/90, pulse 70s. LUNGS: Clear. CARDIAC: Normal S1, S2. ABDOMEN: Soft, nontender. EXTREMITIES: There is no edema. IMAGING DATA: Result of the patient's stress test showed no ischemia. The peripheral vascular studi es showed some distal disease, but no proximal disease in the lower extremities. I do feel dorsalis pedis pulses bilaterally today. ASSESSMENT: 1. Labile hypertension. 2. Previous bypass surgery. 3. Previous stent implantation on saphenous vein graft to the LAD on 2 occasions. 4. Hypertension. 5. Leg pain, probably neuropathy. PLAN: Should go home on the same medicine when she came in on with the addition of Lasix 20 mg a day . I will ask her to come back and see me in the office in about 6-8 weeks.
--- NOTE | 2017-12-26 22:24 | DIS ---
DATE OF DISCHARGE: 12/26/2017 DISCHARGE DISPOSITION: Home. FOLLOWUP: Follow up with primary care physician, Dr. Lauren in 1 week. Follow up with Cardiology, Dr. Saini in 2 weeks. ALLERGIES: No known drug allergies. Patient was seen and examined on the day of discharge, denies any new complaints. No chest pain, dandre rtness of breath, palpitations reported. INPATIENT CONSULTANTS: Critical Care, Dr. Nettles. BRIEF HOSPITAL COURSE: Patient is a 67-year-old female with coronary artery disease, status post CAB G with stent placement in 08/2017, hypertension, hyperlipidemia, and diabetes mellitus type 2, who pr esented to the emergency room with chest discomfort. Please refer to the history and physical dated 12/23/2017, for further details. Please note that due to some misunderstanding, patient was not taking Plavix at home. She has a drug -eluting stent placed in 08/2017. The patient was admitted to the Intensive Care Unit with a diagnosis of unstable angina. She was sta rted on nitroglycerin drip with good control of chest discomfort. Patient was evaluated by Cardiolog y, Dr. Saini. She was placed on Lovenox 1 mg/kg. An echocardiogram showed ejection fraction 55%-60 % with mild mitral regurgitation, [id number] tricuspid regurgitation. She underwent Cardiolite stress test after discontinuation of nitroglycerin that was negative for reversible ischemia. There was no wall motion abnormality. Ejection fraction was 79%. She will continue her home medication i n addition to Plavix and Lasix 20 mg daily. She also had some left lower extremity neuropathic pain that improved with Neurontin. FINAL DIAGNOSES: 1. Unstable angina. 2. Hypertensive emergency, resolved. 3. Coronary artery disease, status post CABG and cardiac catheterization with drug-eluting stent serjio cement in 08/2017. 4. Chronic kidney disease, stage 2. 5. Hypertension. 6. Hyperlipidemia. 7. Obesity with a BMI 33.5. 8. Diabetes mellitus, type 2. 9. Left lower extremity pain secondary to neuropathy. Good improvement with Neurontin. 10. Gastroesophageal reflux disease. 11. History of cerebrovascular accident. Plan of care was discussed with the patient in detail. She stated understanding. DISCHARGE MEDICATIONS: Plavix 75 mg daily, Lasix 20 mg daily, Neurontin 300 mg 3 times a day, sublin gual nitroglycerin as needed. Other home medications were resumed. Albuterol inhaler as needed, Xanax as needed, amlodipine 5 mg d aily, Lipitor 20 mg q.p.m., calcium and vitamin D daily, carvedilol 3.125 mg b.i.d., Flexeril as need ed, lisinopril 40 mg daily, metformin 500 mg daily, Protonix 40 mg daily, Zoloft 50 mg daily.
[2017-12-27] MEDS ORDERED: Amlodipine 5 MG TAB PO SCH (09:00)
[2017-12-27] MEDS ORDERED: Lisinopril 20 MG TAB PO SCH (09:00)
== END 2017-12-26 15:35 | disposition home or self-care (01) | DRG 303 ==
LOC: ERS 15:08 → CCU 19:55
PROVIDERS: ADMIT Internal Medicine; ATTEND Internal Medicine
PROC: [UNRECOGNIZED PROCEDURE] (principal; 2017-12-25)
DX: I25.110 Atherosclerotic heart disease of native coronary artery with unstable angina pectoris (principal); E11.22 Type 2 diabetes mellitus with diabetic chronic kidney disease; E11.42 Type 2 diabetes mellitus with diabetic polyneuropathy; N18.3 Chronic kidney disease, stage 3 (moderate); I08.1 Rheumatic disorders of both mitral and tricuspid valves; Z95.1 Presence of aortocoronary bypass graft; E78.5 Hyperlipidemia, unspecified; Z86.73 Personal history of transient ischemic attack (TIA), and cerebral infarction without residual deficits; I12.9 Hypertensive chronic kidney disease with stage 1 through stage 4 chronic kidney disease, or unspecified chronic kidney disease; E66.9 Obesity, unspecified; Z68.33 Body mass index [BMI] 33.0-33.9, adult; Z79.84 Long term (current) use of oral hypoglycemic drugs; Z79.82 Long term (current) use of aspirin; Z79.51 Long term (current) use of inhaled steroids; K21.9 Gastro-esophageal reflux disease without esophagitis; I16.0 Hypertensive urgency; Z95.5 Presence of coronary angioplasty implant and graft; F41.9 Anxiety disorder, unspecified; F32.9 Major depressive disorder, single episode, unspecified
CPT/HCPCS: 36415; 36416; 71045; 78452; 80048; 80053; 80069; 82553; 83735; 83880; 84484; 85025; 85610; 85730; 93005; 93017; 93306; 93798; 93923; 94760; 96365; 96372; 96375; A9500; J1650; J2785; J3010

== ENCOUNTER 2018-01-04 13:20 | Emergency (ER) | payer MEDICARE ==
--- NOTE | 2018-01-04 13:58 | RAD ---
4 VIEWS LEFT KNEE: Date: 01/04/18 COMPARISON: None. HISTORY: Left leg pain for past 3 weeks. FINDINGS: Four views of the left knee show no evidence of acute fracture or dislocation. No knee effusion is se en. No degenerative change is present. IMPRESSION: No evidence of acute osseous abnormality. POS: [facility]
[2018-01-04] MEDS ORDERED: Lidocaine 1% PF 5 ML VIAL ONE (13:59)
[2018-01-04] MEDS ORDERED: Triamcinolone 40 MG/ML VIAL ONE (13:59)
== END 2018-01-04 14:20 | disposition home or self-care (01) ==
LOC: SCSER 13:20
DX: M71.22 Synovial cyst of popliteal space [Baker], left knee (principal); I25.10 Atherosclerotic heart disease of native coronary artery without angina pectoris; E11.9 Type 2 diabetes mellitus without complications; E78.5 Hyperlipidemia, unspecified; I10 Essential (primary) hypertension; F41.9 Anxiety disorder, unspecified; F32.9 Major depressive disorder, single episode, unspecified; Z79.899 Other long term (current) drug therapy
CPT/HCPCS: J2001; J3301

== ENCOUNTER 2018-01-06 08:23 | Emergency (ER) | payer MEDICARE ==
[2018-01-06] MEDS ORDERED: Acetaminophen/Codeine 30-300mg Tablet ONE (10:23)
--- NOTE | 2018-01-06 11:00 | ULT ---
LEFT LOWER EXREMITY VENOUS DOPPLER ULTRASOUND EVALUATION: DATE: 01/06/18. HISTORY: Left lower extremity pain and swelling. FINDINGS: Multiple longitudinal and transverse images of the left lower extremity venous system are obtained us ing a multihertz linear ray transducer. Real-time, color flow, and spectral waveform Doppler analysi s demonstrates no evidence of acute or old clot seen in the left common femoral, superficial femoral, femoral profunda, popliteal, posterior tibial vein, post-trifurcation veins, and left greater saphen ous vein. IMPRESSION: No evidence of left lower extremity deep venous thrombosis. POS: [facility]
--- NOTE | 2018-01-06 11:41 | RAD ---
THREE VIEWS LUMBAR SPINE: HISTORY: Back pain. FINDINGS: AP, lateral, and coned-down views of lumbar spine demonstrate 5 [id number] lumbar vertebrae. No evidence of lumbar spine fracture, subluxations, or bony lesions seen. IMPRESSION: Normal 3 views lumbar spine. POS: [facility]
== END 2018-01-06 10:28 | disposition home or self-care (01) ==
LOC: SCSER 08:23
DX: M54.16 Radiculopathy, lumbar region (principal); E11.9 Type 2 diabetes mellitus without complications; I25.10 Atherosclerotic heart disease of native coronary artery without angina pectoris; E78.5 Hyperlipidemia, unspecified; I10 Essential (primary) hypertension; F41.9 Anxiety disorder, unspecified; F32.9 Major depressive disorder, single episode, unspecified; Z79.02 Long term (current) use of antithrombotics/antiplatelets; Z79.82 Long term (current) use of aspirin; Z79.84 Long term (current) use of oral hypoglycemic drugs; Z79.899 Other long term (current) drug therapy
CPT/HCPCS: 72100

== ENCOUNTER 2018-02-01 09:30 | Outpatient (CLI) | payer MEDICARE ==
--- NOTE | 2018-02-01 12:58 | MRI ---
MRI LEFT KNEE WITHOUT CONTRAST: INDICATIONS: Left knee pain for one month with difficulty walking. FINDINGS: There are large full-thickness areas of articular cartilage thinning involving the medial tibial plat eau and medial femoral condyle with subchondral edema. There is a complex degenerative tear with a h orizontal component involving the body and posterior horn of the medial meniscus. There is an obliqu e radial component involving the posterior horn. There is extrusion of the medial meniscus. There i s a horizontally oriented tear involving the posterior body of the lateral meniscus, best seen on cedric ge 16 of series 7. The ACL, PCL, MCL, and LCLC are intact. The extensor mechanism is intact. There is prominent edema overlying the anteromedial aspect of the left knee. There is a moderate sized Garza's cyst. IMPRESSION: 1. Moderate osteoarthrosis of the left knee with severe chondrosis affecting the medial femoral-tibi al joint compartment with reactive marrow edema. 2. Complex medial meniscal tear with extrusion. 3. Lateral meniscal tear. POS: [facility]
== END 2018-02-01 09:31 | disposition home or self-care (01) ==
LOC: SCSMRI 09:30
PROVIDERS: ATTEND Orthopaedic Surgery
DX: M23.92 Unspecified internal derangement of left knee (principal); M17.12 Unilateral primary osteoarthritis, left knee; R60.0 Localized edema; S83.232A Complex tear of medial meniscus, current injury, left knee, initial encounter; S83.282A Other tear of lateral meniscus, current injury, left knee, initial encounter; M22.2X2 Patellofemoral disorders, left knee
CPT/HCPCS: 77067

== ENCOUNTER 2018-06-27 13:08 | Observation (INO) | payer MEDICARE ==
[~2018-06-27 13:08] MED LIST: ISOVUE-370 76%-LOCM 1 ML ONE
[2018-06-27 13:33] LABS: #Basophils 0.1 thou/uL (0.0-0.2); #Eosinphils 0.2 thou/uL (0.0-0.7); #Lymphocytes 1.6 thou/uL (1.20-3.40); #Monocytes 0.4 thou/uL (0.11-0.59); #Neutrophils 2.5 thou/uL (1.40-6.50); %Basophils 1.1 % (0.0-1.0); %Eosinophils 5.1 % (0.0-10.0); %Lymphocytes 32.7 % (21.0-51.0); Hemoglobin 14.4 g/dL (12.0-16.0); Mean Corpuscular HGB CONC 33.4 g/dL (32.0-36.0); Mean Corpuscular Hemoglobin 32.2 pg (27.0-31.0); Mean Corpuscular Volume 96.4 fL (78.0-98.0); Mean Platelet Volume 9.5 fL (7.4-10.4); Platelet Count 241 thou/uL (130-400); RBC Distribution Width 12.5 % (11.5-14.5); Red Blood Cell (RBC) Count 4.48 mill/uL (4.20-5.40); White Blood Cell (WBC) Count 4.8 thou/uL (4.8-10.8)
[2018-06-27 14:05] LABS: CKMB 2.8 ng/mL (0-6.6); Troponin I Less than 0.010 ng/mL (< 0.028)
[2018-06-27 14:10] LABS: ALT (SGPT) 11 U/L (8-55); AST (SGOT) 30 U/L (5-34); Albumin 4.2 g/dL (3.4-4.8); Alkaline Phosphatase 91 U/L (40-150); Anion Gap 14 mmol/L (10-20); BUN (Urea Nitrogen) 9 mg/dL (9.8-20.1); Bilirubin, Total 0.4 mg/dL (0.2-1.2); CK (CPK) 95 U/L (29-168); Calc. Creatinine Clearance 0 mL/min (70-130); Calcium 9.9 mg/dL (7.8-10.44); Carbon Dioxide 24 mmol/L (23-31); Chloride 106 mmol/L (98-107); Estimated GFR-MDRD 85; Globulin 3.5 g/dL (2.4-3.5); Glucose 119 mg/dL (80-115); Potassium 4.9 mmol/L (3.5-5.1); Protein, Total 7.7 g/dL (6.0-8.3); Sodium 139 mmol/L (136-145)
--- NOTE | 2018-06-27 14:13 | RAD ---
CHEST ONE VIEW: 06/27/18 HISTORY: Chest pain. COMPARISON: Radiograph 12/23/17. FINDINGS: The heart size is upper limits of normal. No pneumothorax. No effusion. No acute osseous abnormality. IMPRESSION: No acute intrathoracic abnormality. POS: [facility]
[2018-06-27] MEDS ORDERED: Ondansetron HCl/PF 4 MG/2 ML Vial ONE (14:43)
[2018-06-27] MEDS ORDERED: Nitroglycerin 2% Ointment 1 INCH/1 GM Packet ONE (14:43)
[2018-06-27] MEDS ORDERED: Morphine 4 MG/ML VIAL ONE (14:44)
[2018-06-27 17:18] LABS: Troponin I Less than 0.010 ng/mL (< 0.028)
[2018-06-27] MEDS ORDERED: Nitroglycerin 0.4 MG TAB (25 Tab Bottle) PO PRN (17:36)
[2018-06-27 18:25] VITALS: BMI 37.6
--- NOTE | 2018-06-27 18:31 | PDOC.FPRHP ---
- History of Present Illness Chief Complaint: Neck/arm pain History of Present Illness: 68 yo F presents to ED with complaint of sudden onset L upper neck pain with radiation to the L arm. She also complains of Left sided numbness worse than baseline and a period of blurred vision. She admits to a chronic L arm weakness associated with a previous CVA. She denies other symptoms such as n/v, chest pain, or SOB. She states that symptoms started while sitting at work and continue to persist. She denies trauma or inciting event. She has never has similar symptoms in the past. - Allergies/Adverse Reactions Allergies Allergy/AdvReac Type Severity Reaction Status Date / Time No Known Drug Allergies Allergy Verified 06/27/18 18:32 - Home Medications Medication Instructions Recorded Confirmed Type Albuterol Sulfate [Proair HFA] 2 puff INH Q6HR PRN 01/08/14 06/27/18 History Carvedilol [Coreg] 3.125 mg PO BID 01/08/14 06/27/18 History metFORMIN HCl [metFORMIN HCl ER] 500 mg PO DAILY 01/08/14 06/27/18 History Amlodipine [Norvasc] 5 mg PO DAILY 05/31/14 06/27/18 History Lisinopril 40 mg PO DAILY 05/31/14 06/27/18 History Sertraline HCl [Zoloft] 50 mg PO DAILY #0 tab 06/03/14 06/27/18 Rx Atorvastatin Calcium 20 mg PO QPM 09/09/16 06/27/18 History Calcium Carbonate + Vit D [Oscal + 500 mg PO DAILY 09/07/17 06/27/18 History Vitamin D] Cyclobenzaprine [Flexeril] 10 mg PO TID PRN 09/07/17 06/27/18 History Aspirin [Aspirin EC] 81 mg PO DAILY 06/27/18 06/27/18 History Clopidogrel Bisulfate [Plavix] 75 mg PO DAILY 06/27/18 06/27/18 History Gabapentin [Neurontin] 300 mg PO HS 06/27/18 06/27/18 History Meloxicam [Mobic] 15 mg PO DAILY 06/27/18 06/27/18 History Omeprazole 40 mg PO DAILY 06/27/18 06/27/18 History - History PMHx: DM2 CAD s/p 4v CABG HTN Hx of CVA HLD PSHx: 4v CABG appendectomy Cholecystectomy hysterectomy FHx: Maternal HTN and CAD Social: Previous 10 pack year smoking hx, occasional etoh, denies recreational drugs - Review of Systems General: denies: fever/chills, weight/appetite/sleep changes Eyes: reports: vision changes (blurred vision) ENT: denies: nasal congestion, rhinorrhea Respiratory: denies: cough, congestion, shortness of breath, exercise intolerance Cardiovascular: denies: chest pain, edema Gastrointestinal: denies: nausea, vomiting, diarrhea, constipation, abdominal pain Genitourinary: denies: incontinence, dysuria Skin: denies: rashes, lesions Musculoskeletal: reports: pain (L upper neck with radiation to L arm) Neurological: reports: numbness (entire left side of her body) Psychological: denies: anxiety, depression - Vital signs BP: 140/101 HR: 69 RR: 14 Tmax: 98.2 Pox: 97% on RA Wt: 82 kg - Physical Exam Constitutional: NAD, awake, alert and oriented HEENT: normocephalic and atraumatic, PERRLA, EOMI Neck: trachea midline Chest: no-tender to palpation, no lesions Heart: RRR, normal S1/S2, no murmurs/rubs/gallops Lungs: CTAB, no respiratory distress, no wheezing, no retractions Abdomen: soft, non-tender, bowel sounds present -Musculoskeletal: TTP over L paraspinal mm at C2-3 Neurological: CN II-XII intact -Neurological: Pt cannot lift her left arm above shoulder level. This is apparently chronic. She states that she feels numbness on the left side of her face, arm, leg Skin: no rash/lesions, good turgor Heme/Lymphatic: no unusual bruising or bleeding Psychiatric: normal mood and affect, good judgment and insight, intact recent and remote memory FMR H&P: Results - Labs Result Diagrams: 06/28/18 03:58 06/28/18 03:58 Lab results: WBC 4.8 thou/uL (4.8-10.8) 06/27/18 13:23 Hgb 14.4 g/dL (12.0-16.0) 06/27/18 13:23 Hct 43.1 % (36.0-47.0) 06/27/18 13:23 MCV 96.4 fL (78.0-98.0) 06/27/18 13:23 Plt Count 241 thou/uL (130-400) 06/27/18 13:23 Neutrophils % 53.0 % (42.0-75.0) 06/27/18 13:23 Sodium 139 mmol/L (136-145) 06/27/18 13:23 Potassium 4.9 mmol/L (3.5-5.1) 06/27/18 13:23 Chloride 106 mmol/L (98-107) 06/27/18 13:23 Carbon Dioxide 24 mmol/L (23-31) 06/27/18 13:23 BUN 9 mg/dL (9.8-20.1) L 06/27/18 13:23 Creatinine 0.81 mg/dL (0.6-1.1) 06/27/18 13:23 Glucose 119 mg/dL (80-115) H 06/27/18 13:23 Calcium 9.9 mg/dL (7.8-10.44) 06/27/18 13:23 Total Bilirubin 0.4 mg/dL (0.2-1.2) 06/27/18 13:23 AST 30 U/L (5-34) 06/27/18 13:23 ALT 11 U/L (8-55) 06/27/18 13:23 Alkaline Phosphatase 91 U/L (40-150) 06/27/18 13:23 Creatine Kinase 95 U/L (29-168) 06/27/18 13:23 CK-MB (CK-2) 2.8 ng/mL (0-6.6) 06/27/18 13:23 Serum Total Protein 7.7 g/dL (6.0-8.3) 06/27/18 13:23 Albumin 4.2 g/dL (3.4-4.8) 06/27/18 13:23 - EKG Interpretation EKG: NSR, rate 70, Twave inversion in V1-3 - Radiology Interpretation Chest x-ray Status: image reviewed by me (NAD), report reviewed by me FMR H&P: A/P - Problem List (1) CVA (cerebral vascular accident) Current Visit: No Status: Suspected Priority: High Code(s): I63.9 - CEREBRAL INFARCTION, UNSPECIFIED Qualifiers: CVA mechanism: unspecified Qualified Code(s): I63.9 - Cerebral infarction, unspecified (2) Paraspinal muscle spasm Current Visit: Yes Status: Acute Code(s): M62.830 - MUSCLE SPASM OF BACK (3) CAD (coronary artery disease) Current Visit: No Status: Chronic Code(s): I25.10 - ATHSCL HEART DISEASE OF [place] CORONARY ARTERY W/O ANG PCTRS (4) DM2 (diabetes mellitus, type 2) Current Visit: Yes Status: Chronic Qualifiers: Diabetes mellitus assisted insulin use: without laborer marine terminal use Diabetes mellitus complication status: without complication Qualified Code(s): E11.9 - Type 2 diabetes mellitus without complications (5) HLD (hyperlipidemia) Current Visit: No Status: Chronic Code(s): E78.5 - HYPERLIPIDEMIA, UNSPECIFIED (6) Hypertension Current Visit: No Status: Chronic Code(s): I10 - ESSENTIAL (PRIMARY) HYPERTENSION - Plan TIA/CVA - suspected diagnoses. Will order CT brain to help rule out acute bleed. Will also get MRI brain in am - Pts history evolved between ERMD and my evaluation, it is unclear if she is having new or old neurological symptoms - Continue home ASA - Pending results of imaging, will consult neurology - admit to stroke for observation and NIH Paraspinal muscle spasm - most likely diagnoses related to her neck pain, however given that this onset at the same time as her neurological symptoms arterial dissection or aneurism is within the differential. Will order CTA head and neck. - start tizanidine HTN - continue home meds after permissive HTN period DM2 - continue home meds - low carb diet - Accucheck achs - mild ssi CAD - continue home statin and asa Hx of CVA - statin and asa PPx - lovenox Diet heart healthy, low carb Code Full Dispo: Pt is currently stable, will obs over night. Pending imaging results, will likely dc in 24-48 hours FMR H&P: Upper Level - Plan Date/Time: 06/27/18 [id number] I, [], have evaluated this patient and agree with findings/plan as outlined by photo intern resident. Pertinent changes/additions are listed here. Attending Addendum - Attending Addendum Date/Time: 06/28/18 [id number]. Please note that I evaluated the patient in the ED. I personally evaluated the patient and discussed the management with Dr. Figueroa. I agree with and repeated the History, Examination, Assessment and Plan documented above with any addition or exceptions noted below. Only symptoms are left neck pain and left face/arm/leg numbness that she says is different from previously documented. Out of concern for stroke/dissection imaging was ordered.
[2018-06-27] MEDS ORDERED: HumaLOG 300 UNITS/3 ML VIAL SC PRN ×2 (18:53)
[2018-06-27] MEDS ORDERED: Dextrose 50% Abboject 50 ML SYRINGE SLOW IVP PRN (18:53)
[2018-06-27] MEDS ORDERED: Dextrose 5% in Water 1,000 ML IV PRN (18:53)
[2018-06-27] MEDS: Acetaminophen 325 MG TAB PO PRN (19:16)
[2018-06-27 19:53] LABS: Troponin I 0.017 ng/mL (< 0.028)
--- NOTE | 2018-06-27 20:29 | CT ---
CT OF HEAD NONCONTRAST: 06/27/18 COMPARISON: 12/24/16 INDICATION: CVA, TIA with headache. FINDINGS: There is no evidence of intracranial hemorrhage, mass effect, midline shift or ventriculomegaly. Mild chronic ischemic disease is present within the cerebral white matter. There is no acute fluid level of the imaged paranasal sinuses. IMPRESSION: No acute intracranial hemorrhage or mass effect. POS: [facility]
[2018-06-27] MEDS ORDERED: PROVENTIL INHALER 6.7 G (200 INHALATIONS) INH PRN (20:41)
[2018-06-27] MEDS ORDERED: Cyclobenzaprine 10 MG TAB PO PRN (20:41)
--- NOTE | 2018-06-27 20:52 | CT ---
CT ANGIOGRAM OF THE NECK CT ANGIOGRAM OF THE HEAD 06/27/18 HISTORY: Headache. Evaluate for dissection. CVA. TIA. COMPARISON: 12/25/16. TECHNIQUE: CT angiogram of the head and neck were performed in the axial plane. Three dimensional reformatted im ages are submitted for interpretation. FINDINGS: Postcontrast images limit evaluation for subarachnoid hemorrhage. Cortical gomez-white matter differen tiation appears to be preserved. No evidence of hydrocephalus. Calvarium is intact. Adequate aeration of the sinuses and mastoid air cells. The aerodigestive tract is patent. No mucosal abnormalities. No obvious masses in the oral cavity. Mi dline fatty raphae of the tongue is preserved. Epiglottis has a normal caliber. Pre-epiglottic fat is preserved. There is no prevertebral soft tissue swelling. Heterogeneous thyroid gland is again demonstrated. Parotid and submandibular glands are unremarkable. No evidence of lymphadenopathy. Sternocleidomastoid muscles are unremarkable. Upper mediastinum and lung apices are unremarkable. There is no evidence of high grade central canal stenosis. Varying foraminal narrowing due to degener ative change. Cervical spine vertebral body height is maintained. No fracture. CT ANGIOGRAM: The visualized aortic arch has appropriate enhancement and luminal diameter. There is a common origin of the left and right carotid arteries. RIGHT CAROTID: The right carotid artery, carotid bifurcation, and internal carotid artery have appropriate enhanceme nt and luminal diameter. LEFT CAROTID: Mild atherosclerosis of the distal common carotid artery and carotid bifurcation. No significant sten osis based upon NASCET criteria. Left internal carotid artery is unremarkable. Both subclavian arteries are patent. Bilateral cervical vertebral arteries are patent throughout thei r course in the neck and are codominant. CT ANGIOGRAM OF THE HEAD: Symmetric enhancement and luminal diameter of the intracranial internal carotid arteries. There is m ild atherosclerosis involving both distal cavernous and paraclinoid segments. ANTERIOR CIRCULATION: Symmetric enhancement and luminal diameter of the A1 and M1 segments. Proximal A2 segments and proxim al MCA branches are patent and symmetric. No significant stenosis in the anterior circulation. POSTERIOR CIRCULATION: Visualized PICC artery origins are unremarkable. Both vertebral arteries supply a normal appearing ba silar artery. The left and right P1 segments have appropriate enhancement and luminal diameter. No si gnificant stenosis in the posterior circulation. IMPRESSION: 1. No evidence of significant stenosis in the carotid arteries based upon NASCET criteria. 2. No significant stenosis at the level of the [place]. POS: [facility]
[2018-06-27] MEDS ORDERED: Carvedilol 3.125 MG TAB PO SCH (21:00)
[2018-06-27] MEDS ORDERED: Atorvastatin Calcium 20 MG TAB PO SCH (21:00)
[2018-06-27] MEDS: tiZANidine HCl 4 MG TAB PO SCH (21:16)
[2018-06-27] MEDS: Gabapentin 300 MG CAP PO SCH (21:16)
[2018-06-28] MEDS: Acetaminophen 325 MG TAB PO PRN ×3 (01:59→16:42)
[2018-06-28] MEDS ORDERED: Lactated Ringer's 500 ML IV SCH (03:45)
[2018-06-28 04:39] LABS: #Eosinphils 0.1 thou/uL (0.0-0.7); #Lymphocytes 1.2 thou/uL (1.20-3.40); #Monocytes 0.5 thou/uL (0.11-0.59); %Basophils 1.1 % (0.0-1.0); %Eosinophils 3.7 % (0.0-10.0); %Lymphocytes 31.9 % (21.0-51.0); %Neutrophils 51.3 % (42.0-75.0); Hemoglobin 12.8 g/dL (12.0-16.0); Mean Corpuscular HGB CONC 32.4 g/dL (32.0-36.0); Mean Corpuscular Hemoglobin 31.6 pg (27.0-31.0); Mean Corpuscular Volume 97.5 fL (78.0-98.0); Mean Platelet Volume 10.2 fL (7.4-10.4); Platelet Count 222 thou/uL (130-400); RBC Distribution Width 12.4 % (11.5-14.5); Red Blood Cell (RBC) Count 4.05 mill/uL (4.20-5.40); White Blood Cell (WBC) Count 3.9 thou/uL (4.8-10.8)
[2018-06-28 04:52] LABS: Anion Gap 9 mmol/L (10-20); BUN (Urea Nitrogen) 10 mg/dL (9.8-20.1); Calc. Creatinine Clearance 78 mL/min (70-130); Calcium 9.6 mg/dL (7.8-10.44); Carbon Dioxide 28 mmol/L (23-31); Chloride 106 mmol/L (98-107); Estimated GFR-MDRD 76; Glucose 140 mg/dL (80-115); Potassium 3.8 mmol/L (3.5-5.1); Sodium 139 mmol/L (136-145)
[2018-06-28] MEDS ORDERED: Carvedilol 3.125 MG TAB PO SCH (05:07)
[2018-06-28] MEDS ORDERED: Lorazepam 1 MG TAB PO PRN (06:00)
--- NOTE | 2018-06-28 06:50 | PDOC.FM ---
- Subjective Subjective: No overnight events. Continues to have left sided weakness and pain. Denies CP or SOB, no other concerns or questions. - Objective MAR Reviewed: Yes Vital Signs & Weight: Vital Signs (12 hours) Temp Pulse Resp BP BP BP BP 06/28/18 05:09 67 101/64 06/28/18 04:50 64 92/59 L 06/28/18 04:34 66 85/52 L 06/28/18 03:30 98.5 F 70 18 80/50 L 74/50 L 06/27/18 23:05 98.6 F 70 20 100/57 L 06/27/18 21:26 BP Pulse Ox 06/28/18 05:09 06/28/18 04:50 06/28/18 04:34 06/28/18 03:30 85/53 L 97 06/27/18 23:05 97 06/27/18 21:26 92 L Weight Weight 83.461 kg I&O: 06/26/18 06/27/18 06/28/18 06:59 06:59 06:59 Intake Total 600 Output Total 100 Balance 500 Result Diagrams: 06/28/18 03:58 06/28/18 03:58 Phys Exam - Physical Examination Constitutional: NAD Neck: supple Respiratory: no wheezing, clear to auscultation bilateral Cardiovascular: RRR, no significant murmur Gastrointestinal: soft, non-tender, positive bowel sounds Musculoskeletal: no edema, pulses present Psychiatric: normal affect, A&O x 3 Dx/Plan (1) TIA (transient ischemic attack) Code(s): G45.9 - TRANSIENT CEREBRAL ISCHEMIC ATTACK, UNSPECIFIED Status: Acute (2) Paraspinal muscle spasm Code(s): M62.830 - MUSCLE SPASM OF BACK Status: Acute (3) DM2 (diabetes mellitus, type 2) Status: Chronic Qualifiers: Diabetes mellitus residential insulin use: without outside operator use Diabetes mellitus complication status: without complication Qualified Code(s): E11.9 - Type 2 diabetes mellitus without complications (4) CAD (coronary artery disease) Code(s): I25.10 - ATHSCL HEART DISEASE OF [place] CORONARY ARTERY W/O ANG PCTRS Status: Chronic (5) Diabetes Code(s): E11.9 - TYPE 2 DIABETES MELLITUS WITHOUT COMPLICATIONS Status: Chronic (6) HLD (hyperlipidemia) Code(s): E78.5 - HYPERLIPIDEMIA, UNSPECIFIED Status: Chronic (7) Hypertension Code(s): I10 - ESSENTIAL (PRIMARY) HYPERTENSION Status: Chronic - Plan Plan: TIA/CVA - Continue home ASA - CTA brain and neck: no acute abnormalities, no significant stenosis - MRI today Paraspinal muscle spasm - Radiation to L arm - Trops neg x2 - CTA neck nml - Continue tizanidine HTN - Continue home meds - Orthostatics neg DM2 - Continue home metformin - Accucheck ACHS - Mild SSI - Hypoglycemic protocol CAD - Continue home statin and ASA Hx of CVA - Continue statin, ASA, plavix - Increase Atorvastatin to 80mg Code Status: Full DVT ppx: Lovenox
[2018-06-28] MEDS: Meloxicam 15 MG TAB PO SCH (07:43)
[2018-06-28] MEDS: Clopidogrel Bisulfate 75 MG TAB PO SCH (07:44)
[2018-06-28] MEDS: tiZANidine HCl 4 MG TAB PO SCH ×2 (07:44→21:11)
[2018-06-28] MEDS: Calcium Carbonate + Vit D 250 MG TAB PO SCH (07:44)
[2018-06-28] MEDS: Enoxaparin Sodium 40 MG/0.4 ML SYRINGE SC SCH (07:44)
[2018-06-28] MEDS: Aspirin 81 mg Enteric Coated Tablet PO SCH (07:44)
[2018-06-28] MEDS: metFORMIN XR 500 MG TAB PO SCH (07:44)
[2018-06-28] MEDS ORDERED: Amlodipine 5 MG TAB PO SCH (09:00)
[2018-06-28] MEDS ORDERED: Aspirin 325 MG TAB PO SCH (09:00)
[2018-06-28] MEDS ORDERED: Lisinopril 20 MG TAB PO SCH (09:00)
--- NOTE | 2018-06-28 10:01 | MRI ---
MRI BRAIN WITHOUT CONTRAST: HISTORY: Transient ischemic attack. CVA. COMPARISON: 12/25/2016. FINDINGS: No hemorrhage on the axial gradient echo sequence. Calvarium has a normal T1 marrow signal intensity. Midline brain parenchymal structures are unremark able. Note is made of a partially empty sella. No parenchymal mass, mass effect, or midline shift. Brain volume is age appropriate. Cortical gomez- white matter differentiation is preserved. No evidence of hydrocephalus. Central arterial flow voids are maintained. Absent restricted diffusion. T2 and FLAIR white matter hypodensities compatible with chronic small-vessel ischemic change. Adequate aeration of the sinuses and mastoid air cells. IMPRESSION: Absent restricted diffusion. No acute infarct. POS: [facility]
[2018-06-28] MEDS: Ondansetron ODT 4 MG TAB PO PRN ×2 (10:40→16:42)
[2018-06-28 13:13] LABS: Troponin I Less than 0.010 ng/mL (< 0.028)
[2018-06-28] MEDS ORDERED: Atorvastatin Calcium 40 MG TAB PO SCH (21:00)
[2018-06-28] MEDS: Gabapentin 300 MG CAP PO SCH (21:12)
[2018-06-29] MEDS: Acetaminophen 325 MG TAB PO PRN (01:42)
--- NOTE | 2018-06-29 03:36 | DIS-2 ---
DATE OF ADMISSION: 06/27/2018 DATE OF DISCHARGE: 06/28/2018 RESIDENT: Sonia Marcos PGY1. ADMITTING ATTENDING: Azeem Peñaloza M.D. DISCHARGE ATTENDING: Azeem Peñaloza MD. CONSULTATIONS: None. PROCEDURES: 1. Chest x-ray showing no acute intrathoracic abnormality. 2. Brain CT, no acute intracranial hemorrhage or mass effect. 3. CT [place] angio with contrast, no evidence of significant stenosis in the carotid arter ies. No significant stenosis at the level of the [place]. 4. Brain MRI shows absent restricted diffusion, no acute infarct. PRIMARY DIAGNOSES: 1. Transient ischemic attack. 2. Paraspinal muscle spasm. SECONDARY DIAGNOSES: 1. Hypertension. 2. Diabetes. 3. Coronary artery disease. 4. History of cerebrovascular accident. DISCHARGE MEDICATIONS: 1. Albuterol 2 inhalations q.6 hours p.r.n. 2. Aspirin 81 mg daily. 3. Atorvastatin 40 mg daily (new). 4. Calcium vitamin D 500 mg daily. 5. Plavix 75 mg daily. 6. Flexeril 10 mg t.i.d. 7. Gabapentin 300 mg at bedtime. 8. Mobic 15 mg daily. 9. Metformin 500 mg daily. 10. Omeprazole 40 mg daily. 11. Zoloft 50 mg daily. 12. Zanaflex 4 mg b.i.d. 13. Carvedilol 3.125 mg b.i.d. 14. Amlodipine 5 mg daily. 15. Lisinopril 40 mg daily. DISCONTINUED MEDICATIONS: Atorvastatin 20 mg. HISTORY OF PRESENT ILLNESS AND HOSPITAL COURSE: Ms. Rothman is a 68-year-old female who presented to the ED with a complaint of sudden onset left upper neck pain with radiation to the left arm, left-si ded numbness and weakness and dropping things, worse than baseline. She does have residual deficits of chronic left arm weakness after her previous CVA. Her CT and CTA imaging were negative. Troponin s were negative x3. Brain MRI showed no acute ischemia. This could likely be nerve impingement or m uscle spasm. This can be followed up with her PCP, Dr. Lauren in outpatient setting. She was disch arged with some muscle relaxers for her neck pain until she can establish an appointment with Dr. Alissa tony. Her chronic medical conditions of hypertension, diabetes, CAD and history of CVA were managed with [facility] medications and were stable throughout her hospital stay. DISPOSITION: Stable. DISCHARGE INSTRUCTIONS: 1. Location: Home. 2. Diet: Heart healthy. 3. Activity: No restrictions. 4. Follow up with Dr. Lauren within 3-7 days.
--- NOTE | 2018-06-29 06:02 | PDOC.FM ---
- Subjective Subjective: Doing well this morning, no questions or complaints. Just waiting on her to pick her up to go home. - Objective MAR Reviewed: Yes Vital Signs & Weight: Vital Signs (12 hours) Temp Pulse Resp BP BP BP Pulse Ox 06/29/18 03:40 68 16 118/78 96 06/28/18 23:14 98.4 F 72 15 118/70 94 L 06/28/18 19:27 98.9 F 74 16 141/74 H 93 L Weight Weight 83.461 kg I&O: 06/27/18 06/28/18 06/29/18 06:59 06:59 06:59 Intake Total 600 150 Output Total 100 Balance 500 150 Result Diagrams: 06/28/18 03:58 06/28/18 03:58 Phys Exam - Physical Examination Constitutional: NAD walking to restroom normal gait Psychiatric: normal affect, A&O x 3 Dx/Plan (1) TIA (transient ischemic attack) Code(s): G45.9 - TRANSIENT CEREBRAL ISCHEMIC ATTACK, UNSPECIFIED Status: Acute (2) Paraspinal muscle spasm Code(s): M62.830 - MUSCLE SPASM OF BACK Status: Acute (3) DM2 (diabetes mellitus, type 2) Status: Chronic Qualifiers: Diabetes mellitus usp insulin use: without terminal computer operator use Diabetes mellitus complication status: without complication Qualified Code(s): E11.9 - Type 2 diabetes mellitus without complications (4) CAD (coronary artery disease) Code(s): I25.10 - ATHSCL HEART DISEASE OF [place] CORONARY ARTERY W/O ANG PCTRS Status: Chronic (5) Diabetes Code(s): E11.9 - TYPE 2 DIABETES MELLITUS WITHOUT COMPLICATIONS Status: Chronic (6) HLD (hyperlipidemia) Code(s): E78.5 - HYPERLIPIDEMIA, UNSPECIFIED Status: Chronic (7) Hypertension Code(s): I10 - ESSENTIAL (PRIMARY) HYPERTENSION Status: Chronic - Plan Plan: TIA/CVA - Continue home ASA - CTA brain and neck: no acute abnormalities, no significant stenosis - MRI: No acute infarct Paraspinal muscle spasm - Radiation to L arm - Trops neg x3 - CTA neck nml - Continue tizanidine HTN - Continue home meds - Orthostatics neg DM2 - Continue home metformin - Accucheck ACHS - Mild SSI - Hypoglycemic protocol CAD - Continue statin and ASA Hx of CVA - Continue statin, ASA, plavix Code Status: Full
[2018-06-29] MEDS: Calcium Carbonate + Vit D 250 MG TAB PO SCH (08:02)
[2018-06-29] MEDS: metFORMIN XR 500 MG TAB PO SCH (08:02)
[2018-06-29] MEDS: Meloxicam 15 MG TAB PO SCH (08:02)
[2018-06-29] MEDS: Clopidogrel Bisulfate 75 MG TAB PO SCH (08:02)
[2018-06-29] MEDS: tiZANidine HCl 4 MG TAB PO SCH (08:02)
[2018-06-29] MEDS: Enoxaparin Sodium 40 MG/0.4 ML SYRINGE SC SCH (08:03)
[2018-06-29] MEDS: Aspirin 81 mg Enteric Coated Tablet PO SCH (08:03)
[2018-06-29 08:13] VITALS: BP 129/85; TEMP 98
--- NOTE | 2018-06-30 13:25 | EKG ---
Test Reason : Blood Pressure : / mmHG Vent. Rate : 070 BPM Atrial Rate : 070 BPM P-R Int : 190 ms QRS Dur : 082 ms QT Int : 426 ms P-R-T Axes : -12 -16 -52 degrees QTc Int : 460 ms Normal sinus rhythm Abnormal ECG Confirmed by JESSI PERALTA ([id number]), publishing editor WENCESLAO CHASE ([id number]) on 06/30/2018 1:24:28 PM Referred By: Confirmed By:JESSI PERALTA
== END 2018-06-29 09:29 | disposition home or self-care (01) ==
LOC: ERS 13:08 → 2SW 15:27
PROVIDERS: ADMIT Family Medicine; ATTEND Family Medicine
DX: G45.9 Transient cerebral ischemic attack, unspecified (principal); M62.830 Muscle spasm of back; M54.2 Cervicalgia; M79.602 Pain in left arm; I69.334 Monoplegia of upper limb following cerebral infarction affecting left non-dominant side; E11.9 Type 2 diabetes mellitus without complications; I25.10 Atherosclerotic heart disease of native coronary artery without angina pectoris; I10 Essential (primary) hypertension; E78.5 Hyperlipidemia, unspecified; Z87.891 Personal history of nicotine dependence; Z79.1 Long term (current) use of non-steroidal anti-inflammatories (NSAID); Z79.84 Long term (current) use of oral hypoglycemic drugs; Z79.02 Long term (current) use of antithrombotics/antiplatelets; Z79.899 Other long term (current) drug therapy; Z95.1 Presence of aortocoronary bypass graft
CPT/HCPCS: 70450; 70496; 70498; 70551; 71045; 80048; 80053; 82550; 82553; 82962 ×3; 84484 ×3; 85025 ×2; 90686; 93005; 94760 ×2; 96372 ×2; 96374; 96375; 97139; 99285; G0008; G0378 ×2; G8978; G8979; 36415; 36416; 90471; J1650; J2270; J2405; J7120; Q0162

== ENCOUNTER → 2018-07-18 | Emergency (ER) | payer MEDICARE ==
[~2018-07-18] MED LIST changes: -ISOVUE-370 76%-LOCM 1 ML ONE; +Ketorolac Tromethamine 60 MG/2 ML VIAL ONE
--- NOTE | 2018-07-18 18:54 | RAD ---
TWO VIEWS CHEST: History: Cough, congestion, body aches. FINDINGS: PA and lateral views obtained. Sternotomy wires seen. Mild cardiomegaly is seen. No evidence of effus ions, pneumonia, or pneumothorax seen. IMPRESSION: Unremarkable two views chest. POS: [facility]
== END ==
LOC: ERS 16:24
DX: J06.9 Acute upper respiratory infection, unspecified (principal); E11.9 Type 2 diabetes mellitus without complications; I25.10 Atherosclerotic heart disease of native coronary artery without angina pectoris; Z86.73 Personal history of transient ischemic attack (TIA), and cerebral infarction without residual deficits; E78.5 Hyperlipidemia, unspecified; I10 Essential (primary) hypertension; F41.9 Anxiety disorder, unspecified; F32.9 Major depressive disorder, single episode, unspecified; Z87.891 Personal history of nicotine dependence; Z79.899 Other long term (current) drug therapy; Z79.84 Long term (current) use of oral hypoglycemic drugs; Z79.82 Long term (current) use of aspirin
CPT/HCPCS: 36415; 71046; 80048; 80061; 80076; 82043; 83036; 84443; 85025; 86803; 93005; 96372; J1885

== ENCOUNTER 2018-12-18 19:21 | Observation (INO) | payer MEDICARE ==
--- NOTE | 2018-12-18 20:09 | RAD ---
CHEST ONE VIEW 12/18/18 HISTORY: Chest pain. COMPARISON: 06/27/18. FINDINGS: Cardiac silhouette is magnified by projection. Pulmonary vasculature is unremarkable. Mediastinum is midline with postoperative changes. No lobar consolidation or evidence of pneumothorax. Rounded ossif ication at the expected location of the right subcoracoid recess is similar in appearance to the prio r study. Degenerative changes of each shoulder. IMPRESSION: Chronic type findings are stable. No active cardiopulmonary abnormalities are demonstrated. POS: [facility]
[2018-12-18 20:16] LABS: Hemoglobin 13.6 g/dL (12.0-16.0); Mean Corpuscular HGB CONC 33.6 g/dL (32.0-36.0); Mean Corpuscular Volume 95.1 fL (78.0-98.0); RBC Distribution Width 12.6 % (11.5-14.5); Red Blood Cell (RBC) Count 4.25 mill/uL (4.20-5.40); White Blood Cell (WBC) Count 5.6 thou/uL (4.8-10.8)
[2018-12-18 20:18] LABS: #Basophils 0.1 thou/uL (0.0-0.2); #Eosinphils 0.2 thou/uL (0.0-0.7); #Lymphocytes 1.8 thou/uL (1.20-3.40); #Monocytes 0.5 thou/uL (0.11-0.59); #Neutrophils 2.8 thou/uL (1.40-6.50); %Eosinophils 3.5 % (0.0-10.0); %Lymphocytes 34.3 % (21.0-51.0); %Neutrophils 51.2 % (42.0-75.0)
[2018-12-18 20:29] LABS: Large Platelets SLIGHT; MDiff Complete? YES; Mean Platelet Volume 9.5 fL (7.4-10.4); Platelet Count 266 thou/uL (130-400); Platelet Morphology Comment Appears Adequate; RBC Morphology Normal
[2018-12-18 20:32] LABS: ALT (SGPT) 10 U/L (8-55); AST (SGOT) 18 U/L (5-34); Albumin 4.1 g/dL (3.4-4.8); Alkaline Phosphatase 121 U/L (40-150); Anion Gap 12 mmol/L (10-20); BUN (Urea Nitrogen) 12 mg/dL (9.8-20.1); Bilirubin, Total 0.3 mg/dL (0.2-1.2); Calc. Creatinine Clearance 0 mL/min (70-130); Calcium 9.8 mg/dL (7.8-10.44); Carbon Dioxide 26 mmol/L (23-31); Chloride 107 mmol/L (98-107); Estimated GFR-MDRD 77; Globulin 3.1 g/dL (2.4-3.5); Glucose 120 mg/dL (80-115); Potassium 3.9 mmol/L (3.5-5.1); Protein, Total 7.2 g/dL (6.0-8.3); Sodium 141 mmol/L (136-145)
--- NOTE | 2018-12-18 21:16 | CT ---
CT HEAD NONCONTRAST 12/18/18 HISTORY: Syncope. COMPARISON: 06/27/18. FINDINGS: There is no evidence of acute intracranial hemorrhage or infarct. Chronic ischemic small vessel dise ase is somewhat pronounced and similar in appearance to the prior study. Ventricles appear normal in size, shape and position. The visualized paranasal sinuses remain well aerated. IMPRESSION: Chronic type findings are stable. No acute intracranial abnormalities are demonstrated. POS: [facility]
[2018-12-18] MEDS ORDERED: Acetaminophen 500 MG TAB ONE (21:30)
[2018-12-18] MEDS ORDERED: Metoclopramide HCl 10 MG/2 ML VIAL ONE (21:30)
[2018-12-18] MEDS ORDERED: diphenhydrAMINE 50 MG/ML VIAL ONE (21:30)
--- NOTE | 2018-12-18 23:38 | PDOC.FPRHP ---
- History of Present Illness Chief Complaint: syncope History of Present Illness: 68yo F with pmh of CVA presents with complaint of syncope. Pt reports feeling dizzy the morning of 12/18. She then felt L sided DAVID with associated L sided neck pain. Later in the afternoon pt was walking around her husbands truck when she syncopized. She does not recall going down, no prodrome, no convulsions, no post ictal state, no incontinence, no tongue bite. pt ran around the truck immediately and found the pt awake and not confused. ED Course: metoclopramide, benadryl, tylenol, 1L - Allergies/Adverse Reactions Allergies Allergy/AdvReac Type Severity Reaction Status Date / Time No Known Drug Allergies Allergy Verified 06/27/18 18:32 - Home Medications Medication Instructions Recorded Confirmed Type Albuterol Sulfate [Proair HFA] 2 puff INH Q6HR PRN 01/08/14 12/19/18 History Carvedilol [Coreg] 3.125 mg PO BID 01/08/14 12/19/18 History metFORMIN HCl [metFORMIN HCl ER] 500 mg PO DAILY 01/08/14 12/19/18 History Amlodipine [Norvasc] 5 mg PO DAILY 05/31/14 12/19/18 History Lisinopril 40 mg PO DAILY 05/31/14 12/19/18 History Sertraline HCl [Zoloft] 50 mg PO DAILY #0 tab 06/03/14 12/19/18 Rx Calcium Carbonate + Vit D [Oscal + 500 mg PO DAILY 09/07/17 12/19/18 History Vitamin D] Cyclobenzaprine [Flexeril] 10 mg PO TID PRN 09/07/17 12/19/18 History Aspirin [Aspirin EC] 81 mg PO DAILY 06/27/18 12/19/18 History Clopidogrel Bisulfate [Plavix] 75 mg PO DAILY 06/27/18 12/19/18 History Gabapentin [Neurontin] 300 mg PO HS PRN 06/27/18 12/19/18 History Meloxicam [Mobic] 15 mg PO DAILY PRN 06/27/18 12/19/18 History Omeprazole 40 mg PO DAILY 06/27/18 12/19/18 History Atorvastatin Calcium [Lipitor] 40 mg PO HS #30 tab 06/28/18 12/19/18 Rx tiZANidine HCl [Zanaflex] 4 mg PO BID PRN 12/19/18 12/19/18 History - History PMHx:DM, CAD, CVA, HTN, HLD, anxiety depression PSHx: CABG, appendectomy, sylvia, hysterectomy FHx: mom- [place] Social: denies x3 - Review of Systems General: denies: fever/chills, fatigue Eyes: reports: vision changes (flashes of light before syncope). denies: eye pain ENT: denies: nasal congestion, rhinorrhea Respiratory: denies: cough, congestion, shortness of breath Cardiovascular: denies: chest pain, palpitation Gastrointestinal: reports: nausea. denies: vomiting Genitourinary: denies: incontinence, dysuria Skin: denies: rashes, lesions Musculoskeletal: denies: tenderness, stiffness Neurological: denies: numbness, syncope Psychological: denies: anxiety, depression - Vital signs BP: [129/76] HR: [78] RR: [18] Tmax: [98.9] Pox: [98]% on [ra] Wt: [80] - Physical Exam Constitutional: NAD, awake, alert and oriented HEENT: EOMI, grossly normal vision, grossly normal hearing Neck: supple, no thyromegaly Chest: no-tender to palpation, no lesions Heart: RRR, normal S1/S2 Lungs: CTAB, no respiratory distress Abdomen: soft, non-tender Musculoskeletal: normal structure, normal tone -Neurological: wal[place] L sided decreased sensation and 4/5 L hip flexor strength. Otherwise normal neuro exam Skin: no rash/lesions, good turgor Heme/Lymphatic: no purpura, no petechia Psychiatric: normal mood and affect, good judgment and insight FMR H&P: Results - Labs Result Diagrams: 12/18/18 19:55 12/19/18 04:54 Lab results: WBC 5.6 thou/uL (4.8-10.8) 12/18/18 19:55 Hgb 13.6 g/dL (12.0-16.0) 12/18/18 19:55 Hct 40.4 % (36.0-47.0) 12/18/18 19:55 MCV 95.1 fL (78.0-98.0) 12/18/18 19:55 Plt Count 266 thou/uL (130-400) 12/18/18 19:55 Neutrophils % 51.2 % (42.0-75.0) 12/18/18 19:55 Sodium 141 mmol/L (136-145) 12/18/18 19:55 Potassium 3.9 mmol/L (3.5-5.1) 12/18/18 19:55 Chloride 107 mmol/L (98-107) 12/18/18 19:55 Carbon Dioxide 26 mmol/L (23-31) 12/18/18 19:55 BUN 12 mg/dL (9.8-20.1) 12/18/18 19:55 Creatinine 0.88 mg/dL (0.6-1.1) 12/18/18 19:55 Glucose 120 mg/dL (80-115) H 12/18/18 19:55 Calcium 9.8 mg/dL (7.8-10.44) 12/18/18 19:55 Total Bilirubin 0.3 mg/dL (0.2-1.2) 12/18/18 19:55 AST 18 U/L (5-34) 12/18/18 19:55 ALT 10 U/L (8-55) 12/18/18 19:55 Alkaline Phosphatase 121 U/L (40-150) 12/18/18 19:55 Serum Total Protein 7.2 g/dL (6.0-8.3) 12/18/18 19:55 Albumin 4.1 g/dL (3.4-4.8) 12/18/18 19:55 FMR H&P: A/P - Problem List (1) Syncope Current Visit: Yes Status: Acute Code(s): R55 - SYNCOPE AND COLLAPSE (2) CAD (coronary artery disease) Current Visit: No Status: Chronic Code(s): I25.10 - ATHSCL HEART DISEASE OF [place] CORONARY ARTERY W/O ANG PCTRS (3) Diabetes Current Visit: No Status: Chronic Code(s): E11.9 - TYPE 2 DIABETES MELLITUS WITHOUT COMPLICATIONS (4) HLD (hyperlipidemia) Current Visit: No Status: Chronic Code(s): E78.5 - HYPERLIPIDEMIA, UNSPECIFIED (5) Hypertension Current Visit: No Status: Chronic Code(s): I10 - ESSENTIAL (PRIMARY) HYPERTENSION - Plan Syncope A- given pt hx of migrain in 20's and aura today revealed on ROS. Considering complex migraine to be cause of syncope. MRI in 2018 unremarkable, CTA 05/2018 shows no carotid stenosis. Last echo in 12/2017 shows normal EF 55-60% P- orthostatics - echo - monitor on tele DM - home metformin, SSI CAD - home meds HTN home meds HLD home meds Anxiety depression - home meds CODE: Full OF NOTE: pt is [employer] and refuses blood products. FMR H&P: Upper Level - Pertinent history Kaylee Rothman is a 68 year old female with past history of CVA with residual left sided deficits who presents to the ED after an episode of sudden onset dizziness/DAVID that resulted in a fall. Unclear if pt lost consciousness. Occurred as she was walking to her car earlier today. No new neurological symptoms. No loss of john or bladder function. - Pertinent findings Vitals as above. Exam: General: alert and oriented x 3 Heart: regular rate and rhythm, no murmurs, rubs, or gallops. Lungs: clear to auscultation bilaterally. Neuro: decreased sensation over left side of body, baseline per pt; 4/5 strength left upper/left lower extremity. CT head: negative for acute hemorrhage - Plan Date/Time: 12/18/18 2255 I, Jessi Trujillo, have evaluated this patient and agree with findings/plan as outlined by corporate legal intern resident. Pertinent changes/additions are listed here. 1. Likely complex migraine. - concern raised for syncope due to fall, although it is unclear if pt truly ever lost consciousness. - will continue to monitor on telemetry for arrhythmia. Will order Echo to evaluate for valvulopathy. - DAVID protocol. - Pt has had relatively recent neuroimaging including MRI and CTA of head/neck; will hold off on repeating these studies. - likely d/c in AM if DAVID/dizziness improve. Regarding chronic problems, will resume home medications. Code status: Full DVT prophylaxis: Lovenox. Addendum - Attending - Attending Attestation Date/Time: 12/18/18 0404 I personally evaluated the patient and discussed the management with Dr. Redmond /Ronnie. I agree with the History, Examination, Assessment and Plan documented above with any addition or exceptions noted below. Patient with history of CVA x 2 here with 1 day of worsening bitemporal headache with radiation to neck, photophobia, phonophobia, mild nausea. Reports dizziness that began this morning, constant in nature, and "flashes of light" in her vision. Reports history of migraines with aura in her 20s and reports this episode reminds her of those symptoms in the past. Got scared today bc she felt similarly during her previous stroke that left her with residual deficits. She was ambulating out of car today and had either syncopal or presyncopal episode during ambulation, denies prodromal symptoms. Denies fevers, chills, chest pain, shortness of breath. Reports otherwise feeling well recently and only a "mild" headache over the last few days. Labs overtly normal, CT scan negative for acute change. Her exam is non focal. She had extensive brain imaging done in June as part of previous CVA. Will obs patient to tele for syncope. Fluid hydrate, work to get headache under control. Consider migraine with aura as part of her constellation of symptoms versus tension type headache. Defer on further brain imaging at this time unless her exam shows focal deficits. Further mgmt per clinical course.
[2018-12-19] MEDS ORDERED: HumaLOG 300 UNITS/3 ML VIAL SC PRN (00:51)
[2018-12-19] MEDS ORDERED: Dextrose 5% in Water 1,000 ML IV PRN (00:51)
[2018-12-19] MEDS ORDERED: Dextrose 50% Abboject 50 ML SYRINGE SLOW IVP PRN (00:51)
[2018-12-19] MEDS ORDERED: Acetaminophen 325 MG TAB PO PRN (00:51)
[2018-12-19] MEDS ORDERED: Ketorolac Tromethamine 30 MG/ML VIAL IVP SCH ×2 (00:51→09:00)
[2018-12-19] MEDS ORDERED: Ondansetron ODT 4 MG TAB PO PRN (00:51)
[2018-12-19 00:57] VITALS: BMI 37.1
[2018-12-19] MEDS ORDERED: PROVENTIL INHALER 6.7 G (200 INHALATIONS) INH PRN (02:43)
[2018-12-19] MEDS ORDERED: Cyclobenzaprine 10 MG TAB PO PRN (02:43)
[2018-12-19 05:34] LABS: Anion Gap 9 mmol/L (10-20); BUN (Urea Nitrogen) 10 mg/dL (9.8-20.1); Calc. Creatinine Clearance 90 mL/min (70-130); Calcium 9.3 mg/dL (7.8-10.44); Carbon Dioxide 27 mmol/L (23-31); Chloride 109 mmol/L (98-107); Estimated GFR-MDRD 90; Glucose 95 mg/dL (80-115); Potassium 3.6 mmol/L (3.5-5.1); Sodium 141 mmol/L (136-145)
--- NOTE | 2018-12-19 08:52 | PDOC.FM ---
- Subjective Subjective: Mrs. Rothman is resting comfortably in bed, She still has a headache, 5/10. nausea associated - Objective Vital Signs & Weight: Vital Signs (12 hours) Temp Pulse Resp BP BP BP BP 12/19/18 07:30 98.1 F 76 18 130/78 12/19/18 05:12 98.2 F 76 16 117/69 117/69 127/59 L 12/19/18 00:58 98.1 F 76 18 139/73 Pulse Ox 12/19/18 07:30 97 12/19/18 05:12 98 12/19/18 00:58 95 Weight Weight 84.187 kg I&O: 12/18/18 12/19/18 12/20/18 06:59 06:59 06:59 Intake Total 210 Balance 210 Result Diagrams: 12/18/18 19:55 12/19/18 04:54 Phys Exam - Physical Examination Constitutional: NAD HEENT: moist MMs Neck: no nodes Respiratory: clear to auscultation bilateral Cardiovascular: RRR, no significant murmur Gastrointestinal: soft, non-tender Musculoskeletal: no edema, pulses present deficits at baseline Psychiatric: normal affect Skin: no rash Dx/Plan (1) Syncope Code(s): R55 - SYNCOPE AND COLLAPSE Status: Acute (2) Paraspinal muscle spasm Code(s): M62.830 - MUSCLE SPASM OF BACK Status: Acute (3) CAD (coronary artery disease) Code(s): I25.10 - ATHSCL HEART DISEASE OF [place] CORONARY ARTERY W/O ANG PCTRS Status: Chronic (4) DM2 (diabetes mellitus, type 2) Status: Chronic Qualifiers: Diabetes mellitus terminal operations manager insulin use: without assisted use Diabetes mellitus complication status: without complication Qualified Code(s): E11.9 - Type 2 diabetes mellitus without complications (5) HLD (hyperlipidemia) Code(s): E78.5 - HYPERLIPIDEMIA, UNSPECIFIED Status: Chronic (6) Hypertension Code(s): I10 - ESSENTIAL (PRIMARY) HYPERTENSION Status: Chronic (7) CVA (cerebral vascular accident) Code(s): I63.9 - CEREBRAL INFARCTION, UNSPECIFIED Status: Suspected Qualifiers: CVA mechanism: unspecified Qualified Code(s): I63.9 - Cerebral infarction, unspecified - Plan Plan: Syncope - complex migraine vs tension headache - MRI in 2018 unremarkable, CTA 05/2018 shows no carotid stenosis. Last echo in shows normal EF 55-60% - orthostatics wnl - echo pending - monitor on tele DM - home metformin, SSI CAD - home meds HTN home meds HLD home meds Anxiety depression - home meds CODE: Full OF NOTE: pt is [employer] and refuses blood products. dispo: treat headache, echo pending, possible DC later Addendum - Attending - Attending Attestation Date/Time: 12/19/181933 I personally evaluated the patient and discussed the management with Dr. Garay I agree with the History, Examination, Assessment and Plan documented above with any addition or exceptions noted below.
[2018-12-19] MEDS ORDERED: Cyclobenzaprine 10 MG TAB PO SCH (09:00)
[2018-12-19] MEDS ORDERED: Metoclopramide HCl 10 MG TAB PO SCH (09:00)
[2018-12-19] MEDS: Carvedilol 3.125 MG TAB PO SCH ×2 (09:27→20:01)
[2018-12-19] MEDS: Amlodipine 5 MG TAB PO SCH (09:27)
[2018-12-19] MEDS: Calcium Carbonate + Vit D 250 MG TAB PO SCH ×2 (09:27→20:01)
[2018-12-19] MEDS: Enoxaparin Sodium 40 MG/0.4 ML SYRINGE SC SCH (09:27)
[2018-12-19] MEDS: Aspirin 81 mg Enteric Coated Tablet PO SCH (09:27)
[2018-12-19] MEDS: Lisinopril 10 MG TAB PO SCH (09:28)
[2018-12-19] MEDS: metFORMIN XR 500 MG TAB PO SCH (09:28)
[2018-12-19] MEDS ORDERED: Gabapentin 300 MG CAP PO PRN (21:00)
[2018-12-19] MEDS ORDERED: Atorvastatin Calcium 40 MG TAB PO SCH (21:00)
--- NOTE | 2018-12-20 06:28 | PDOC.FM ---
- Subjective Subjective: pt is resting comfortably in bed, headache and dizziness have resolved. tolerating po - Objective Vital Signs & Weight: Vital Signs (12 hours) Temp Pulse Resp BP BP BP BP 12/20/18 03:22 98.0 F 67 14 104/57 L 12/19/18 19:53 98.9 F 76 14 145/82 H 153/85 H 128/81 Pulse Ox 12/20/18 03:22 99 12/19/18 19:53 98 Weight Weight 82.917 kg I&O: 12/18/18 12/19/18 12/20/18 06:59 06:59 06:59 Intake Total 210 1170 Output Total 1300 Balance 210 -130 Result Diagrams: 12/18/18 19:55 12/19/18 04:54 Phys Exam - Physical Examination Constitutional: NAD HEENT: moist MMs Neck: no JVD Gastrointestinal: no distention Musculoskeletal: no edema Neurological: moves all 4 limbs Psychiatric: normal affect Skin: no rash Dx/Plan (1) Syncope Code(s): R55 - SYNCOPE AND COLLAPSE Status: Acute (2) Paraspinal muscle spasm Code(s): M62.830 - MUSCLE SPASM OF BACK Status: Acute (3) CAD (coronary artery disease) Code(s): I25.10 - ATHSCL HEART DISEASE OF [place] CORONARY ARTERY W/O ANG PCTRS Status: Chronic (4) DM2 (diabetes mellitus, type 2) Status: Chronic Qualifiers: Diabetes mellitus bed bug exterminator insulin use: without mcfp use Diabetes mellitus complication status: without complication Qualified Code(s): E11.9 - Type 2 diabetes mellitus without complications (5) HLD (hyperlipidemia) Code(s): E78.5 - HYPERLIPIDEMIA, UNSPECIFIED Status: Chronic (6) Hypertension Code(s): I10 - ESSENTIAL (PRIMARY) HYPERTENSION Status: Chronic (7) CVA (cerebral vascular accident) Code(s): I63.9 - CEREBRAL INFARCTION, UNSPECIFIED Status: Suspected Qualifiers: CVA mechanism: unspecified Qualified Code(s): I63.9 - Cerebral infarction, unspecified - Plan Plan: Syncope - complex migraine vs tension headache - MRI in 2018 unremarkable, CTA 05/2018 shows no carotid stenosis. Last echo in shows normal EF 55-60% - orthostatics, TSH, CBC, CMP wnl - echo pending - monitor on tele BPP - James-hallpike maneuver positive - resolved DM - home metformin, SSI CAD - home meds HTN home meds HLD home meds Anxiety depression - home meds CODE: Full OF NOTE: pt is [employer] and refuses blood products. dispo: possible DC later, w/ unchanged echocardiogram report Addendum - Attending - Attending Attestation Date/Time: 12/20/18 [id number] I personally evaluated the patient and discussed the management with Dr. Garay I agree with the History, Examination, Assessment and Plan documented above with any addition or exceptions noted below. On exam noted spasm left posterior paraspinal muscles of neck. Patient with Rx muscle relaxor at home. Vertigo improved exam favors BPPV w/u completed pending echocardiogram ok dismiss with outpt f/u.
[2018-12-20 08:06] VITALS: TEMP 98.5
[2018-12-20] MEDS: Calcium Carbonate + Vit D 250 MG TAB PO SCH (09:57)
[2018-12-20] MEDS: Carvedilol 3.125 MG TAB PO SCH (09:57)
[2018-12-20] MEDS: Aspirin 81 mg Enteric Coated Tablet PO SCH (09:57)
[2018-12-20] MEDS: Amlodipine 5 MG TAB PO SCH (09:57)
[2018-12-20] MEDS: Enoxaparin Sodium 40 MG/0.4 ML SYRINGE SC SCH (09:58)
[2018-12-20] MEDS: Lisinopril 10 MG TAB PO SCH (09:58)
[2018-12-20] MEDS: metFORMIN XR 500 MG TAB PO SCH (10:04)
[2018-12-20] MEDS ORDERED: Meclizine HCl 12.5 MG TAB PO PRN (10:45)
[2018-12-20] MEDS ORDERED: Ondansetron ODT 8 MG TAB SL PRN (10:45)
[2018-12-20 11:28] VITALS: BP 130/78
--- NOTE | 2018-12-21 03:03 | DIS ---
DATE OF ADMISSION: 12/19/2018 DATE OF DISCHARGE: 12/20/2018 RESIDENT: Dr. Quan Garay. CONSULTS: None. IMAGING: Brain CT significant for chronic type findings are stable. No acute intracranial abnormalities are demonstrated. Chest x-ray significant for chronic type findings are stable. No active cardiopulmonary abnormalities are demonstrated. Echocardiogram significant for left ventricular ejection fraction visually estimated at 55% to 60%, mild mitral regurgitation is present. PROCEDURES: None. DISCHARGE MEDICATIONS: 1. Coreg 3.125 mg p.o. b.i.d. 2. Metformin 500 mg p.o. daily. 3. Albuterol 2 puffs inhaled q.6 hours p.r.n. 4. Lisinopril 40 mg p.o. daily. 5. Norvasc 5 mg p.o. daily. 6. Zoloft 50 mg p.o. daily. 7. Calcium carbonate 500 mg p.o. daily. 8. Flexeril 10 mg p.o. t.i.d. p.r.n. 9. Meloxicam 15 mg p.o. daily p.r.n. 10. Omeprazole 40 mg p.o. daily. 11. Plavix 75 mg p.o. daily. 12. Gabapentin 300 mg p.o. at bedtime p.r.n. 13. Aspirin 81 mg p.o. daily. 14. Lipitor 40 mg p.o. at bedtime. 15. Tizanidine 4 mg p.o. b.i.d. p.r.n. 16. Meclizine 12.5 mg p.o. b.i.d. p.r.n. 17. Zofran 8 mg SL b.i.d. p.r.n. DISCHARGE DIAGNOSES: 1. Tension headache. 2. Benign positional vertigo. SECONDARY DIAGNOSES: 1. Diabetes mellitus. 2. Coronary artery disease. 3. Hypertension. 4. Hyperlipidemia. 5. Anxiety. HISTORY OF PRESENT ILLNESS/HOSPITAL COURSE: Ms. Rothman is a 68-year-old female who presents to the emergency department after having a syncopal episode with subsequent dizziness. She reports a CVA in June with residual left-sided deficits. On time of exam, weakness and sensory disturbances at baseline. No slurring of speech. Neuro exam intact and believed to be at baseline. The patient was admitted to hospital for syncopal workup and remained stable throughout her stay. Her orthostatic vital signs were within normal limits. Her EKG revealed normal sinus rhythm. Echocardiogram was within normal limits. CBC, CMP, and TSH were also within normal limits. It was determined that the patient had benign positional vertigo after a positive Quin-Hallpike maneuver and the remainder of her test being negative. The patient was given Zofran and meclizine and deemed stable for discharge home. DISCHARGE INSTRUCTIONS: DIET: Heart healthy, low-sodium/diabetic. FOLLOWUP: Follow up with PCP, Dr. Lauren in the next 7 to 10 days. Job ID: [id number]
--- NOTE | 2018-12-22 21:04 | EKG ---
Test Reason : Blood Pressure : / mmHG Vent. Rate : 070 BPM Atrial Rate : 070 BPM P-R Int : 166 ms QRS Dur : 086 ms QT Int : 408 ms P-R-T Axes : 053 -16 067 degrees QTc Int : 440 ms Normal sinus rhythm Anterior infarct , age undetermined Abnormal ECG Similar to 18-JUL-2018 Confirmed by BRANDT BYRD DO ([id number]), magazine editor WENCESLAO CHASE ([id number]) on 12/22/2018 9:03:56 PM Referred By: Confirmed By:BRANDT BYRD DO
== END 2018-12-20 15:49 | disposition home or self-care (01) ==
LOC: ERS 19:21 → 2SW 12-19 00:46
PROVIDERS: ADMIT Student in an Organized Health Care Education/Training Program; ATTEND Student in an Organized Health Care Education/Training Program
DX: G44.209 Tension-type headache, unspecified, not intractable (principal); H81.10 Benign paroxysmal vertigo, unspecified ear; I25.10 Atherosclerotic heart disease of native coronary artery without angina pectoris; I10 Essential (primary) hypertension; E11.9 Type 2 diabetes mellitus without complications; E78.5 Hyperlipidemia, unspecified; I34.0 Nonrheumatic mitral (valve) insufficiency; F32.9 Major depressive disorder, single episode, unspecified; F41.9 Anxiety disorder, unspecified; I69.954 Hemiplegia and hemiparesis following unspecified cerebrovascular disease affecting left non-dominant side; Z95.1 Presence of aortocoronary bypass graft; Z90.49 Acquired absence of other specified parts of digestive tract; Z90.710 Acquired absence of both cervix and uterus; Z79.84 Long term (current) use of oral hypoglycemic drugs; Z79.02 Long term (current) use of antithrombotics/antiplatelets; Z79.82 Long term (current) use of aspirin; Z79.899 Other long term (current) drug therapy
CPT/HCPCS: 70450; 71045; 80048; 80053; 82962 ×2; 84443; 84484 ×2; 85025; 93005; 93306; 96365; 96366; 96372 ×2; 96375 ×2; 96376; 99285; G0378 ×2; 36415; 36416; J1200; J1650; J1885; J2765; J8597